=== PATIENT | female | born 1960 | race Hispanic/Latino ===

== ENCOUNTER 2019-12-16 14:28 | Outpatient (CLI) | payer BC ==
--- NOTE | 2019-12-16 15:07 | RAD ---
XR Lumbar Spine 2 Or 3 View: 12/16/2019 12:00 AM Low back pain with right-sided radiculopathy COMPARISON: None FINDINGS: Fracture: None. Alignment: There is grade 1 anterolisthesis of L5 on S1 with suspicion for bilateral pars defects at L5. There is moderate loss of the normal disc space height at L5-S1. There is mild multilevel disc degenerative disease at the remaining lumbar intervertebral disc spaces. Degenerative Change: Moderate facet osteoarthritic changes seen at L4-5. Mild multilevel facet osteo arthritic changes seen at the remaining intervertebral levels. Bone Mineralization:There is diffuse osteopenia Soft tissues: No acute abnormality. IMPRESSION: Mild to moderate lumbar spondylosis. Suspected bilateral pars defects at L5 with grade 1 anterolisthesis of L5 on S1. Further evaluation with an MRI of the lumbar spine may be helpful to evaluate the patient's complaint of right-sided lower extremity radiculopathy.
--- NOTE | 2019-12-16 15:10 | RAD ---
XR Shoulder Rt 3 View STANDARD HISTORY: Right shoulder pain FINDINGS: No fracture or dislocation is identified. There are degenerative changes in the acromioclavicular shaila nt.
--- NOTE | 2019-12-16 15:18 | RAD ---
CERVICAL SPINE 3 VIEWS: HISTORY: Cervicalgia. FINDINGS: C7, C7-T1, and T1 are mostly obscured on the lateral view. The tip of the odontoid and upper C1 are partially obscured on the AP open mouth view. Disk-osteophytosis changes are noted as well as some f acet arthrosis. No prevertebral soft tissue swelling. No malalignment. No acute fracture involving the visualized C-spine. IMPRESSION: Cervical spondylosis. POS: RRE
== END 2019-12-16 14:29 | disposition home or self-care (01) ==
LOC: BICRAD 14:28
PROVIDERS: ATTEND Family Medicine
DX: M54.5 Low back pain (principal); M25.511 Pain in right shoulder; M54.2 Cervicalgia; M47.812 Spondylosis without myelopathy or radiculopathy, cervical region; M47.816 Spondylosis without myelopathy or radiculopathy, lumbar region
CPT/HCPCS: 72040; 72100

== ENCOUNTER 2022-08-19 18:53 | Inpatient (IN) | payer BC, SELFPAY ==
[~2022-08-19 18:53] MED LIST: Iopamidol-370 76% 500 ML 1 ML ONE
[2022-08-19] MEDS ORDERED: Pantoprazole 40 MG VIAL ONE (19:27)
[2022-08-19] MEDS ORDERED: Ondansetron PF 4 MG/2 ML Vial ONE ×2 (19:27→22:47)
[2022-08-19 19:39] LABS: #Eosinphils 0.1 thou/uL (0.0-0.7); #Lymphocytes 0.5 thou/uL (1.20-3.40); #Monocytes 0.3 thou/uL (0.11-0.59); #Neutrophils 9.1 thou/uL (1.40-6.50); %Basophils 0.2 % (0.0-1.0); %Eosinophils 1.3 % (0.0-10.0); %Monocytes 3.1 % (0.0-10.0); %Neutrophils 90.4 % (42.0-75.0); Hemoglobin 10.5 g/dL (12.0-16.0); Mean Corpuscular HGB CONC 34.6 g/dL (32.0-36.0); Mean Corpuscular Hemoglobin 31.8 pg (27.0-31.0); Mean Corpuscular Volume 91.9 fl (78.0-98.0); Mean Platelet Volume 6.5 fL (7.4-10.4); Platelet Count 662 10x3/uL (130-400); RBC Distribution Width 12.4 % (11.5-14.5)
[2022-08-19 20:51] LABS: ALT (SGPT) 7 U/L (8-55); AST (SGOT) 17 U/L (5-34); Albumin 2.8 g/dL (3.5-5.0); Alkaline Phosphatase 210 U/L (40-110); Anion Gap 17 mmol/L (10-20); BUN (Urea Nitrogen) 27 mg/dL (9.8-20.1); Bilirubin, Total 0.4 mg/dL (0.2-1.2); Calc. Creatinine Clearance 0 mL/min (70-130); Carbon Dioxide 20 mmol/L (22-29); Chloride 103 mmol/L (98-107); Estimated GFR 68; Globulin 4.3 g/dL (2.4-3.5); Glucose 296 mg/dL (70-105); Lipase 7 U/L (8-78); Protein, Total 7.1 g/dL (6.0-8.3); Sodium 136 mmol/L (136-145)
[2022-08-19] MEDS ORDERED: Labetalol HCl 100 MG/20 ML VIAL ONE (20:53)
[2022-08-19 20:56] LABS: Calcium 8.6 mg/dL (7.6-10.4)
[2022-08-19 20:58] LABS: SARS-CoV-2 NAA Rapid Test Not Detected (NotDetected)
[2022-08-19] MEDS ORDERED: Morphine 4 MG/ML VIAL ONE (21:22)
[2022-08-19] MEDS ORDERED: Famotidine/PF 20 mg/2ml Vial ONE (22:47)
[2022-08-19] MEDS ORDERED: Acetaminophen 325 MG TAB PO PRN (23:30)
[2022-08-19] MEDS ORDERED: Ondansetron ODT 4 MG TAB SL PRN (23:30)
[2022-08-19] MEDS ORDERED: Sodium Chloride 0.9% 1,000 ML IV SCH (23:45)
[2022-08-20 00:18] LABS: Troponin I 0.122 ng/mL (< 0.028)
[2022-08-20] MEDS ORDERED: Acetaminophen 650 MG Suppository PR PRN (01:06)
[2022-08-20] MEDS ORDERED: hydrALAZINE 20 MG/ML VIAL ONE (01:54)
[2022-08-20] MEDS: hydrALAZINE 20 MG/ML VIAL SLOW IVP PRN ×2 (02:04→06:16)
[2022-08-20] MEDS ORDERED: Piperacillin/Tazobactam 3.375 GM in Sodium Chloride 0.9% 100 ML IVPB SCH (02:45)
[2022-08-20] MEDS ORDERED: Piperacillin/Tazobactam 3.375 GM VIAL ONE (02:50)
[2022-08-20 04:40] LABS: #Lymphocytes 0.6 thou/uL (1.20-3.40); #Monocytes 0.2 thou/uL (0.11-0.59); #Neutrophils 8.5 thou/uL (1.40-6.50); %Lymphocytes 6.7 % (21.0-51.0); %Monocytes 1.8 % (0.0-10.0); %Neutrophils 91.5 % (42.0-75.0); Hemoglobin 9.8 g/dL (12.0-16.0); Mean Corpuscular HGB CONC 32.3 g/dL (32.0-36.0); Mean Corpuscular Hemoglobin 30.3 pg (27.0-31.0); Mean Corpuscular Volume 93.9 fl (78.0-98.0); Mean Platelet Volume 6.5 fL (7.4-10.4); Platelet Count 634 10x3/uL (130-400); RBC Distribution Width 12.3 % (11.5-14.5); Red Blood Cell (RBC) Count 3.24 mill/uL (4.20-5.40); White Blood Cell (WBC) Count 9.3 10x3/uL (4.8-10.8)
[2022-08-20] MEDS ORDERED: Pantoprazole 40 MG VIAL IVP SCH (05:00)
[2022-08-20 05:02] LABS: Anion Gap 19 mmol/L (10-20); BUN (Urea Nitrogen) 26 mg/dL (9.8-20.1); Calc. Creatinine Clearance 77 mL/min (70-130); Calcium 8.5 mg/dL (7.8-10.44); Carbon Dioxide 17 mmol/L (22-29); Chloride 104 mmol/L (98-107); Estimated GFR 60; Glucose 397 mg/dL (70-105); Potassium 3.9 mmol/L (3.5-5.1); Sodium 136 mmol/L (136-145)
[2022-08-20] MEDS ORDERED: Dextrose 5% in Water 1,000 ML IV PRN (05:50)
[2022-08-20] MEDS ORDERED: HumaLOG 300 UNITS/3 ML VIAL SC PRN (05:50)
[2022-08-20] MEDS ORDERED: Dextrose 50% Abboject 50 ML SYRINGE SLOW IVP PRN (05:50)
[2022-08-20 06:16] VITALS: BMI 33.1
[2022-08-20] MEDS: Ondansetron PF 4 MG/2 ML Vial IVP PRN ×3 (06:16→19:26)
[2022-08-20] MEDS: HumaLOG 300 UNITS/3 ML VIAL SC PRN ×3 (06:17→17:45)
[2022-08-20] MEDS: Piperacillin/Tazobactam 3.375 GM in Sodium Chloride 0.9% 100 ML IVPB SCH ×3 (06:17→21:07)
[2022-08-20] MEDS ORDERED: Acetaminophen 325 MG TAB PO PRN (12:41)
[2022-08-21] MEDS: hydrALAZINE 20 MG/ML VIAL SLOW IVP PRN ×2 (04:38→08:43)
[2022-08-21] MEDS: Ondansetron PF 4 MG/2 ML Vial IVP PRN ×2 (04:38→21:10)
[2022-08-21] MEDS: Piperacillin/Tazobactam 3.375 GM in Sodium Chloride 0.9% 100 ML IVPB SCH ×3 (05:51→22:33)
[2022-08-21] MEDS: HumaLOG 300 UNITS/3 ML VIAL SC PRN ×2 (05:51→12:56)
[2022-08-21 06:29] LABS: #Lymphocytes 1.8 thou/uL (1.20-3.40); #Monocytes 0.6 thou/uL (0.11-0.59); #Neutrophils 9.7 thou/uL (1.40-6.50); %Basophils 0.1 % (0.0-1.0); %Eosinophils 0.2 % (0.0-10.0); %Lymphocytes 14.9 % (21.0-51.0); %Neutrophils 79.8 % (42.0-75.0); Hemoglobin 9.7 g/dL (12.0-16.0); Mean Corpuscular HGB CONC 32.7 g/dL (32.0-36.0); Mean Corpuscular Hemoglobin 30.7 pg (27.0-31.0); Mean Corpuscular Volume 94.1 fl (78.0-98.0); Mean Platelet Volume 6.5 fL (7.4-10.4); Platelet Count 654 10x3/uL (130-400); RBC Distribution Width 12.7 % (11.5-14.5); Red Blood Cell (RBC) Count 3.14 mill/uL (4.20-5.40); White Blood Cell (WBC) Count 12.1 10x3/uL (4.8-10.8)
[2022-08-21 06:54] LABS: Anion Gap 14 mmol/L (10-20); BUN (Urea Nitrogen) 32 mg/dL (9.8-20.1); Calc. Creatinine Clearance 47 mL/min (70-130); Calcium 8.5 mg/dL (7.8-10.44); Carbon Dioxide 20 mmol/L (22-29); Chloride 107 mmol/L (98-107); Estimated GFR 35; Glucose 271 mg/dL (70-105); Potassium 3.4 mmol/L (3.5-5.1); Sodium 138 mmol/L (136-145)
[2022-08-21] MEDS: Pantoprazole 40 MG VIAL IVP SCH (08:43)
[2022-08-21] MEDS ORDERED: Promethazine HCl 25 MG in Sodium Chloride 0.9% 50 ML IVPB SCH (11:00)
[2022-08-21] MEDS ORDERED: Potassium Chloride 20 MEQ in Premix Bag 1 BAG IVPB SCH (18:30)
[2022-08-21] MEDS ORDERED: Melatonin 3 MG TAB PO PRN (19:39)
[2022-08-21] MEDS ORDERED: cloNIDine 0.1 MG TAB PO SCH (21:45)
[2022-08-21] MEDS ORDERED: Labetalol HCl 100 MG/20 ML VIAL SLOW IVP PRN (21:57)
[2022-08-21] MEDS ORDERED: Ondansetron PF 4 MG/2 ML Vial IVP SCH (22:00)
[2022-08-22 05:20] LABS: #Basophils 0.1 thou/uL (0.0-0.2); #Eosinphils 0.1 thou/uL (0.0-0.7); #Lymphocytes 1.9 thou/uL (1.20-3.40); #Monocytes 0.7 thou/uL (0.11-0.59); #Neutrophils 6.6 thou/uL (1.40-6.50); %Basophils 0.6 % (0.0-1.0); %Eosinophils 1.4 % (0.0-10.0); %Lymphocytes 20.4 % (21.0-51.0); %Monocytes 7.2 % (0.0-10.0); %Neutrophils 70.4 % (42.0-75.0); Hemoglobin 9.4 g/dL (12.0-16.0); Mean Corpuscular HGB CONC 33.3 g/dL (32.0-36.0); Mean Corpuscular Volume 93.1 fl (78.0-98.0); Mean Platelet Volume 6.5 fL (7.4-10.4); Platelet Count 554 10x3/uL (130-400); RBC Distribution Width 12.7 % (11.5-14.5); Red Blood Cell (RBC) Count 3.02 mill/uL (4.20-5.40); White Blood Cell (WBC) Count 9.4 10x3/uL (4.8-10.8)
[2022-08-22 05:41] LABS: Anion Gap 17 mmol/L (10-20); BUN (Urea Nitrogen) 30 mg/dL (9.8-20.1); Calc. Creatinine Clearance 48 mL/min (70-130); Calcium 8.2 mg/dL (7.8-10.44); Carbon Dioxide 17 mmol/L (22-29); Chloride 108 mmol/L (98-107); Estimated GFR 35; Glucose 179 mg/dL (70-105); Potassium 3.6 mmol/L (3.5-5.1); Sodium 138 mmol/L (136-145)
[2022-08-22] MEDS: Piperacillin/Tazobactam 3.375 GM in Sodium Chloride 0.9% 100 ML IVPB SCH ×3 (06:02→21:11)
[2022-08-22] MEDS: Pantoprazole 40 MG VIAL IVP SCH (08:30)
[2022-08-22] MEDS: Ondansetron PF 4 MG/2 ML Vial IVP PRN (08:30)
[2022-08-22] MEDS: HumaLOG 300 UNITS/3 ML VIAL SC PRN ×2 (13:43→17:00)
[2022-08-22] MEDS: Promethazine HCl 25 MG in Sodium Chloride 0.9% 50 ML IVPB PRN (15:00)
[2022-08-22] MEDS: hydrALAZINE 20 MG/ML VIAL SLOW IVP PRN (15:13)
[2022-08-22] MEDS: Sodium Chloride 0.9% 1,000 ML IV SCH (17:02)
[2022-08-23 06:25] LABS: #Basophils 0.1 thou/uL (0.0-0.2); #Eosinphils 0.3 thou/uL (0.0-0.7); #Lymphocytes 2.8 thou/uL (1.20-3.40); #Monocytes 0.6 thou/uL (0.11-0.59); #Neutrophils 4.6 thou/uL (1.40-6.50); %Basophils 0.6 % (0.0-1.0); %Lymphocytes 33.6 % (21.0-51.0); %Monocytes 6.8 % (0.0-10.0); %Neutrophils 54.9 % (42.0-75.0); Hemoglobin 9.1 g/dL (12.0-16.0); Mean Corpuscular HGB CONC 33.5 g/dL (32.0-36.0); Mean Corpuscular Hemoglobin 31.3 pg (27.0-31.0); Mean Corpuscular Volume 93.6 fl (78.0-98.0); Mean Platelet Volume 6.6 fL (7.4-10.4); Platelet Count 498 10x3/uL (130-400); RBC Distribution Width 12.5 % (11.5-14.5); Red Blood Cell (RBC) Count 2.89 mill/uL (4.20-5.40); White Blood Cell (WBC) Count 8.3 10x3/uL (4.8-10.8)
[2022-08-23] MEDS: Piperacillin/Tazobactam 3.375 GM in Sodium Chloride 0.9% 100 ML IVPB SCH (06:34)
[2022-08-23] MEDS: Sodium Chloride 0.9% 1,000 ML IV SCH (06:34)
[2022-08-23 06:42] LABS: Anion Gap 11 mmol/L (10-20); BUN (Urea Nitrogen) 25 mg/dL (9.8-20.1); Calc. Creatinine Clearance 54 mL/min (70-130); Calcium 8.2 mg/dL (7.8-10.44); Carbon Dioxide 21 mmol/L (22-29); Chloride 109 mmol/L (98-107); Estimated GFR 40; Glucose 114 mg/dL (70-105); Potassium 3.1 mmol/L (3.5-5.1); Sodium 138 mmol/L (136-145)
[2022-08-23] MEDS: Pantoprazole 40 MG VIAL IVP SCH (09:39)
[2022-08-23] MEDS: Potassium Chloride 20 MEQ in Premix Bag 1 BAG IVPB SCH ×2 (09:42→12:19)
[2022-08-23] MEDS ORDERED: HYDROcodone/Acetaminophen 10/325 mg Tablet PO PRN (11:21)
[2022-08-23] MEDS ORDERED: Potassium Chloride 20 MEQ TAB PO SCH (12:00)
[2022-08-23] MEDS: HumaLOG 300 UNITS/3 ML VIAL SC PRN ×2 (12:42→17:20)
[2022-08-23] MEDS ORDERED: Metoprolol Tartrate 25 MG TAB PO SCH (12:45)
[2022-08-24] MEDS: HumaLOG 300 UNITS/3 ML VIAL SC PRN ×3 (05:42→17:36)
[2022-08-24 05:58] LABS: #Eosinphils 0.3 thou/uL (0.0-0.7); #Lymphocytes 2.1 thou/uL (1.20-3.40); #Monocytes 0.6 thou/uL (0.11-0.59); #Neutrophils 6.8 thou/uL (1.40-6.50); %Basophils 0.2 % (0.0-1.0); %Eosinophils 2.9 % (0.0-10.0); %Lymphocytes 21.1 % (21.0-51.0); %Monocytes 6.3 % (0.0-10.0); %Neutrophils 69.5 % (42.0-75.0); Hemoglobin 9.7 g/dL (12.0-16.0); Mean Corpuscular HGB CONC 33.2 g/dL (32.0-36.0); Mean Corpuscular Hemoglobin 30.9 pg (27.0-31.0); Mean Platelet Volume 6.7 fL (7.4-10.4); Platelet Count 460 10x3/uL (130-400); RBC Distribution Width 12.6 % (11.5-14.5); Red Blood Cell (RBC) Count 3.14 mill/uL (4.20-5.40); White Blood Cell (WBC) Count 9.8 10x3/uL (4.8-10.8)
[2022-08-24 06:19] LABS: Anion Gap 7 mmol/L (10-20); BUN (Urea Nitrogen) 19 mg/dL (9.8-20.1); Calc. Creatinine Clearance 64 mL/min (70-130); Calcium 7.7 mg/dL (7.8-10.44); Carbon Dioxide 24 mmol/L (22-29); Chloride 106 mmol/L (98-107); Estimated GFR 50; Glucose 232 mg/dL (70-105); Potassium 3.2 mmol/L (3.5-5.1); Sodium 134 mmol/L (136-145)
[2022-08-24] MEDS ORDERED: Electrolyte Replacement Protocol 1 EACH FS SCH (08:10)
[2022-08-24] MEDS ORDERED: Potassium Chloride 20 MEQ TAB PO SCH (08:30)
[2022-08-24 08:49] LABS: Magnesium 2.1 mg/dL (1.6-2.6); Phosphorus 2.3 mg/dL (2.3-4.7)
[2022-08-24] MEDS: Metoprolol Tartrate 25 MG TAB PO SCH (08:54)
[2022-08-24] MEDS: Promethazine HCl 25 MG in Sodium Chloride 0.9% 50 ML IVPB PRN (10:39)
[2022-08-24] MEDS ORDERED: metroNIDAZOLE 500 MG in Premix Bag 1 BAG IVPB SCH (14:30)
[2022-08-24] MEDS: metroNIDAZOLE 500 MG in Premix Bag 1 BAG IVPB SCH (22:19)
[2022-08-25 05:53] LABS: #Eosinphils 0.4 thou/uL (0.0-0.7); #Lymphocytes 2.8 thou/uL (1.20-3.40); #Monocytes 0.5 thou/uL (0.11-0.59); #Neutrophils 5.6 thou/uL (1.40-6.50); %Basophils 0.2 % (0.0-1.0); %Eosinophils 4.4 % (0.0-10.0); %Lymphocytes 29.6 % (21.0-51.0); %Monocytes 5.7 % (0.0-10.0); %Neutrophils 60.1 % (42.0-75.0); Hemoglobin 10.1 g/dL (12.0-16.0); Mean Corpuscular HGB CONC 33.3 g/dL (32.0-36.0); Mean Corpuscular Volume 93.2 fl (78.0-98.0); Platelet Count 427 10x3/uL (130-400); RBC Distribution Width 12.7 % (11.5-14.5); Red Blood Cell (RBC) Count 3.26 mill/uL (4.20-5.40); White Blood Cell (WBC) Count 9.3 10x3/uL (4.8-10.8)
[2022-08-25] MEDS: HumaLOG 300 UNITS/3 ML VIAL SC PRN ×2 (06:15→13:13)
[2022-08-25 06:17] LABS: Anion Gap 12 mmol/L (10-20); BUN (Urea Nitrogen) 17 mg/dL (9.8-20.1); Calc. Creatinine Clearance 72 mL/min (70-130); Calcium 7.8 mg/dL (7.8-10.44); Carbon Dioxide 20 mmol/L (22-29); Chloride 106 mmol/L (98-107); Estimated GFR 58; Glucose 196 mg/dL (70-105); Potassium 3.4 mmol/L (3.5-5.1); Sodium 135 mmol/L (136-145)
[2022-08-25] MEDS: metroNIDAZOLE 500 MG in Premix Bag 1 BAG IVPB SCH ×2 (06:30→13:14)
[2022-08-25] MEDS ORDERED: Potassium Chloride 20 MEQ TAB PO SCH (08:00)
[2022-08-25] MEDS ORDERED: Magnesium 2 GM/50 ML(in water) 2 GM in Premix Bag 1 BAG IVPB SCH (08:00)
[2022-08-25] MEDS: Metoprolol Tartrate 25 MG TAB PO SCH (08:41)
[2022-08-25 12:40] VITALS: TEMP 97.7
[2022-08-25 14:05] LABS: Potassium Greater than 9.5 mmol/L (3.5-5.1)
[2022-08-25 14:26] VITALS: BP 153/86
[2022-08-25 14:55] LABS: Potassium 3.5 mmol/L (3.5-5.1)
== END 2022-08-25 17:14 | disposition home or self-care (01) | DRG 392 ==
LOC: ERS 18:53 → ERHOLD 23:13 → NEURO 08-20 05:52 → OBSVTOIN 08-21 18:16
PROVIDERS: ADMIT Student in an Organized Health Care Education/Training Program; ATTEND Internal Medicine
DX: A09 Infectious gastroenteritis and colitis, unspecified (principal); J90 Pleural effusion, not elsewhere classified; N17.9 Acute kidney failure, unspecified; I10 Essential (primary) hypertension; I25.10 Atherosclerotic heart disease of native coronary artery without angina pectoris; Z20.822 Contact with and (suspected) exposure to COVID-19; K21.9 Gastro-esophageal reflux disease without esophagitis; E86.0 Dehydration; E11.65 Type 2 diabetes mellitus with hyperglycemia; E11.43 Type 2 diabetes mellitus with diabetic autonomic (poly)neuropathy; K31.84 Gastroparesis; Z95.1 Presence of aortocoronary bypass graft
CPT/HCPCS: 36415; 36416; 71045; 71275; 74176; 80048; 80053; 82553; 83605; 83690; 83735; 83880; 84100; 84484; 85025; 87040; 87324; 87449; 93005; 93306; 96361; 96365; 96366; 96367; 96372; 96375; 96376; C9113; G0378; J0360; J1650; J1815; J2270; J2405; J2543; J2550; J3475; J3480; J3490; J7050; Q9967; S0028

== ENCOUNTER 2022-12-10 08:57 | Inpatient (IN) | payer OTHER, SELFPAY ==
[2022-12-10 09:28] LABS: Base Excess -12.4 mEq/L (-2.0 to +3.0); Calcium, Ionized (venous) 1.14 mmol/L (1.16-1.32); Chloride (VBG) 99 mmol/L (98-106); Hematocrit-VBG 44 % (36.0-47.0); Hemoglobin (Hb) 14.8 g/dL (11.7-16.0); Potassium (VBG) 4.17 mmol/L (3.70-5.30); Sodium 136.5 mmol/L (133-146); pH (venous) 7.327 (7.32-7.43)
[2022-12-10 09:33] LABS: #Monocytes 0.3 thou/uL (0.11-0.59); #Neutrophils 10.6 thou/uL (1.40-6.50); %Basophils 0.2 % (0.0-1.0); %Lymphocytes 10.1 % (21.0-51.0); %Monocytes 2.2 % (0.0-10.0); Hemoglobin 13.7 g/dL (12.0-16.0); Mean Corpuscular HGB CONC 33.7 g/dL (32.0-36.0); Mean Corpuscular Hemoglobin 28.8 pg (27.0-31.0); Mean Corpuscular Volume 85.3 fl (78.0-98.0); Mean Platelet Volume 10.2 fL (7.4-10.4); Platelet Count 403 10x3/uL (130-400); RBC Distribution Width 13.2 % (11.5-14.5); Red Blood Cell (RBC) Count 4.76 mill/uL (4.20-5.40); White Blood Cell (WBC) Count 12.2 10x3/uL (4.8-10.8)
[2022-12-10] MEDS ORDERED: Metoclopramide HCl 10 MG/2 ML VIAL ONE (09:42)
[2022-12-10] MEDS ORDERED: diphenhydrAMINE 50 MG/ML VIAL ONE (09:42)
[2022-12-10] MEDS ORDERED: Famotidine/PF 20 mg/2ml Vial ONE (09:42)
[2022-12-10 10:07] LABS: ALT (SGPT) 8 U/L (8-55); AST (SGOT) 14 U/L (5-34); Albumin 2.5 g/dL (3.5-5.0); Alkaline Phosphatase 135 U/L (40-110); Anion Gap 30 mmol/L (10-20); BUN (Urea Nitrogen) 28 mg/dL (9.8-20.1); Bilirubin, Total 0.2 mg/dL (0.2-1.2); Calc. Creatinine Clearance 0 mL/min (70-130); Calcium 9.2 mg/dL (7.8-10.44); Carbon Dioxide 10 mmol/L (22-29); Chloride 98 mmol/L (98-107); Estimated GFR 25; Globulin 4.4 g/dL (2.4-3.5); Glucose 634 mg/dL (70-105); Lipase 29 U/L (8-78); Magnesium 2.4 mg/dL (1.6-2.6); Potassium 4.1 mmol/L (3.5-5.1); Protein, Total 6.9 g/dL (6.0-8.3); Sodium 134 mmol/L (136-145)
[2022-12-10] MEDS ORDERED: INSULIN REGULAR IN 0.9 % NACL 100 UNITS/100 ML BAG ONE (10:32)
[2022-12-10] MEDS ORDERED: HUMULIN R 100 UNITS in Sodium Chloride 0.9% 100 ML IVPB SCH ×3 (10:45→12:15)
[2022-12-10] MEDS ORDERED: Dextrose 50% Abboject 50 ML SYRINGE SLOW IVP PRN ×2 (11:25→12:13)
[2022-12-10] MEDS ORDERED: NS 0.9% w/ 20 MEQ KCL 1,000 ML IV PRN ×3 (11:25→12:13)
[2022-12-10] MEDS ORDERED: Sodium Chloride 0.9% 1,000 ML IV PRN ×8 (11:25→12:13)
[2022-12-10] MEDS ORDERED: Dextrose 5 %-0.45 % NaCl 1,000 ML IV PRN ×2 (11:25→12:13)
[2022-12-10] MEDS ORDERED: D5 1/2 NS w/20 mEq KCL 1,000 ML IV PRN (11:25)
[2022-12-10] MEDS ORDERED: Electrolyte Replacement Protocol 1 EACH IVPB ONE (11:25)
[2022-12-10] MEDS ORDERED: Potassium Chloride 20 MEQ/100 ML PREMIX BAG ONE (11:41)
[2022-12-10 12:04] LABS: Bilirubin Negative (Negative); Blood, Urine 1+ (Negative); CAUTI Indications for Culture Alt mental st,lethar; Clarity Turbid (Clear); Glucose, Urine (Dipstick) Greater than 1000 mg/dL (Negative); Ketone, Urine 100 mg/dL (Negative); Leukocyte 250 Leu/uL (Negative); Nitrite Negative (Negative); Protein, Urine (Dipstick) 600 mg/dL (Neg-Trace); Specific Gravity, Urine 1.022 (1.002-1.036); Squamous Epithelial 0-3 HPF (0-3); Urobilinogen Normal mg/dL (Less than 2)
[2022-12-10 12:12] LABS: Bacteria/HPF 3+ HPF (None Seen); WBC/HPF 21-50 HPF (0-3)
[2022-12-10] MEDS ORDERED: Electrolyte Replacement Protocol 1 EACH IVPB SCH (12:13)
[2022-12-10] MEDS ORDERED: Senokot S 8.6-50 MG TAB PO PRN (12:13)
[2022-12-10] MEDS ORDERED: Calcium Carbonate 500 MG ChewTAB PO PRN (12:13)
[2022-12-10] MEDS ORDERED: Guaifenesin DM 100-10/5 ML UDCUP PO PRN (12:13)
[2022-12-10] MEDS ORDERED: Acetaminophen 325 MG TAB PO PRN (12:13)
[2022-12-10 12:14] LABS: Urine Culture Reflex Yes Yes
[2022-12-10] MEDS ORDERED: Melatonin 3 MG TAB PO PRN (12:15)
[2022-12-10 12:50] LABS: Lactic Acid 3.2 mmol/L (0.5-2.2)
[2022-12-10 13:01] LABS: Anion Gap 25 mmol/L (10-20); BUN (Urea Nitrogen) 28 mg/dL (9.8-20.1); Calc. Creatinine Clearance 0 mL/min (70-130); Calcium 8.8 mg/dL (7.8-10.44); Carbon Dioxide 11 mmol/L (22-29); Chloride 104 mmol/L (98-107); Estimated GFR 26; Glucose 604 mg/dL (70-105); Potassium 4.8 mmol/L (3.5-5.1); Sodium 135 mmol/L (136-145)
[2022-12-10 15:14] LABS: Glucose 428 mg/dL (70-105)
[2022-12-10] MEDS: NS 0.9% w/ 20 MEQ KCL 1,000 ML IV PRN ×2 (16:05→18:10)
[2022-12-10 17:16] LABS: Anion Gap 18 mmol/L (10-20); BUN (Urea Nitrogen) 28 mg/dL (9.8-20.1); Calc. Creatinine Clearance 34 mL/min (70-130); Calcium 8.7 mg/dL (7.8-10.44); Carbon Dioxide 13 mmol/L (22-29); Chloride 108 mmol/L (98-107); Estimated GFR 28; Glucose 354 mg/dL (70-105); Potassium 3.4 mmol/L (3.5-5.1); Sodium 136 mmol/L (136-145)
[2022-12-10] MEDS: D5 1/2 NS w/20 mEq KCL 1,000 ML IV PRN ×2 (19:43→23:59)
[2022-12-10] MEDS: Potassium Chloride 20 MEQ in Premix Bag 1 BAG IVPB SCH ×2 (20:07→21:59)
[2022-12-10] MEDS: Ondansetron PF 4 MG/2 ML Vial IVP PRN (20:07)
[2022-12-10] MEDS: cefTRIAXone\\ROCEPHIN 2 GM in Sodium Chloride 0.9% 100 ML IVPB SCH (20:07)
[2022-12-10 21:03] LABS: Anion Gap 12 mmol/L (10-20); BUN (Urea Nitrogen) 27 mg/dL (9.8-20.1); Calc. Creatinine Clearance 36 mL/min (70-130); Calcium 8.5 mg/dL (7.8-10.44); Carbon Dioxide 20 mmol/L (22-29); Chloride 114 mmol/L (98-107); Estimated GFR 30; Glucose 208 mg/dL (70-105); Potassium 3.8 mmol/L (3.5-5.1); Sodium 142 mmol/L (136-145)
[2022-12-11] MEDS: Ondansetron PF 4 MG/2 ML Vial IVP PRN ×2 (01:50→15:30)
[2022-12-11 04:49] LABS: Anion Gap 12 mmol/L (10-20); BUN (Urea Nitrogen) 23 mg/dL (9.8-20.1); Calc. Creatinine Clearance 45 mL/min (70-130); Calcium 8.4 mg/dL (7.8-10.44); Carbon Dioxide 18 mmol/L (22-29); Chloride 116 mmol/L (98-107); Estimated GFR 39; Glucose 178 mg/dL (70-105); Potassium 3.9 mmol/L (3.5-5.1); Sodium 142 mmol/L (136-145)
[2022-12-11] MEDS: Metoprolol Tartrate 25 MG TAB PO SCH (07:57)
[2022-12-11] MEDS: D5 1/2 NS w/20 mEq KCL 1,000 ML IV PRN (07:57)
[2022-12-11] MEDS ORDERED: Lidocaine 2% Viscous Solution 20 ML, Aluminum & Magnesium Hydroxide 30 ML, Donnatal Eli... SSW SCH (14:00)
[2022-12-11 14:03] LABS: Anion Gap 12 mmol/L (10-20); BUN (Urea Nitrogen) 18 mg/dL (9.8-20.1); Calc. Creatinine Clearance 48 mL/min (70-130); Calcium 8.7 mg/dL (7.8-10.44); Carbon Dioxide 18 mmol/L (22-29); Chloride 113 mmol/L (98-107); Estimated GFR 41; Glucose 197 mg/dL (70-105); Potassium 3.7 mmol/L (3.5-5.1); Sodium 139 mmol/L (136-145)
[2022-12-11] MEDS ORDERED: Dextrose 5% in Water 1,000 ML IV PRN (15:00)
[2022-12-11] MEDS ORDERED: Glucagon 1 MG/ML KIT IM PRN (15:00)
[2022-12-11] MEDS ORDERED: Insulin Glargine 30 UNITS/0.3 ML VIAL SC SCH (15:00)
[2022-12-11 17:43] LABS: Anion Gap 15 mmol/L (10-20); BUN (Urea Nitrogen) 16 mg/dL (9.8-20.1); Calc. Creatinine Clearance 51 mL/min (70-130); Calcium 8.6 mg/dL (7.8-10.44); Carbon Dioxide 16 mmol/L (22-29); Chloride 113 mmol/L (98-107); Estimated GFR 45; Glucose 153 mg/dL (70-105); Potassium 3.7 mmol/L (3.5-5.1); Sodium 140 mmol/L (136-145)
[2022-12-11] MEDS ORDERED: Metoclopramide HCl 10 MG/2 ML VIAL IVP SCH (20:00)
[2022-12-11] MEDS ORDERED: Promethazine HCl 25 MG in Sodium Chloride 0.9% 50 ML IVPB SCH (20:00)
[2022-12-11] MEDS: cefTRIAXone\\ROCEPHIN 2 GM in Sodium Chloride 0.9% 100 ML IVPB SCH (20:13)
[2022-12-11] MEDS: Atorvastatin Calcium 40 MG TAB PO SCH (20:13)
[2022-12-11] MEDS: HumaLOG 300 UNITS/3 ML VIAL SC PRN (21:00)
[2022-12-11] MEDS ORDERED: Famotidine 20 MG TAB PO SCH (21:00)
[2022-12-11] MEDS ORDERED: Carvedilol 6.25 MG TAB PO SCH (21:00)
[2022-12-12] MEDS: Sodium Chloride 0.9% 1,000 ML IV SCH ×4 (00:10→18:13)
[2022-12-12 04:15] LABS: #Monocytes 0.7 thou/uL (0.11-0.59); #Neutrophils 9.5 thou/uL (1.40-6.50); %Basophils 0.3 % (0.0-1.0); %Lymphocytes 15.5 % (21.0-51.0); %Monocytes 5.9 % (0.0-10.0); %Neutrophils 77.9 % (42.0-75.0); Hemoglobin 13.6 g/dL (12.0-16.0); Mean Corpuscular HGB CONC 33.6 g/dL (32.0-36.0); Mean Corpuscular Hemoglobin 28.3 pg (27.0-31.0); Mean Corpuscular Volume 84.4 fl (78.0-98.0); Mean Platelet Volume 10.9 fL (7.4-10.4); Platelet Count 227 10x3/uL (130-400); White Blood Cell (WBC) Count 12.2 10x3/uL (4.8-10.8)
[2022-12-12] MEDS: HumaLOG 300 UNITS/3 ML VIAL SC PRN (04:53)
[2022-12-12] MEDS: Ondansetron PF 4 MG/2 ML Vial IVP PRN ×3 (05:48→19:26)
[2022-12-12 07:35] LABS: Chloride 117 mmol/L (98-107); Potassium 3.6 mmol/L (3.5-5.1); Sodium 142 mmol/L (136-145)
[2022-12-12 07:36] LABS: Calcium 8.3 mg/dL (7.8-10.44); Glucose 198 mg/dL (70-105)
[2022-12-12 07:38] LABS: Anion Gap 12 mmol/L (10-20); Carbon Dioxide 17 mmol/L (22-29)
[2022-12-12 07:40] LABS: BUN (Urea Nitrogen) 17 mg/dL (9.8-20.1); Calc. Creatinine Clearance 49 mL/min (70-130); Estimated GFR 43
[2022-12-12] MEDS: Metoprolol Tartrate 25 MG TAB PO SCH (09:16)
[2022-12-12] MEDS: Amlodipine 5 MG TAB PO SCH (09:16)
[2022-12-12] MEDS: Aspirin 81 mg Enteric Coated Tablet PO SCH (09:16)
[2022-12-12] MEDS: Insulin Glargine 30 UNITS/0.3 ML VIAL SC SCH (09:17)
[2022-12-12] MEDS ORDERED: Metoclopramide HCl 10 MG/2 ML VIAL IVP SCH (09:45)
[2022-12-12 10:25] LABS: Actual Bicarbonate (HCO3v) 11.2 mEq/L (22-28)
[2022-12-12] MEDS: Metoclopramide 10 MG/10 ML UDCUP PO SCH ×3 (11:39→21:19)
[2022-12-12] MEDS: Senokot 8.6 MG TAB PO PRN (11:44)
[2022-12-12] MEDS: Atorvastatin Calcium 40 MG TAB PO SCH (21:19)
[2022-12-13 04:18] LABS: Anion Gap 10 mmol/L (10-20); BUN (Urea Nitrogen) 14 mg/dL (9.8-20.1); Calc. Creatinine Clearance 57 mL/min (70-130); Calcium 8.3 mg/dL (7.8-10.44); Carbon Dioxide 18 mmol/L (22-29); Chloride 118 mmol/L (98-107); Estimated GFR 51; Glucose 91 mg/dL (70-105); Potassium 3.2 mmol/L (3.5-5.1); Sodium 143 mmol/L (136-145)
[2022-12-13] MEDS: Potassium Chloride 20 MEQ in Premix Bag 1 BAG IVPB SCH ×2 (04:57→06:38)
[2022-12-13] MEDS: Ondansetron PF 4 MG/2 ML Vial IVP PRN ×2 (05:16→13:33)
[2022-12-13] MEDS: Metoclopramide 10 MG/10 ML UDCUP PO SCH ×4 (07:58→20:20)
[2022-12-13] MEDS: Metoprolol Tartrate 25 MG TAB PO SCH (08:01)
[2022-12-13] MEDS: Aspirin 81 mg Enteric Coated Tablet PO SCH (08:01)
[2022-12-13] MEDS: Amlodipine 5 MG TAB PO SCH (08:01)
[2022-12-13] MEDS: Insulin Glargine 30 UNITS/0.3 ML VIAL SC SCH (08:10)
[2022-12-13] MEDS: Senokot 8.6 MG TAB PO PRN (10:00)
[2022-12-13] MEDS: hydrALAZINE 20 MG/ML VIAL SLOW IVP PRN ×2 (10:00→18:12)
[2022-12-13] MEDS: Atorvastatin Calcium 40 MG TAB PO SCH (20:21)
[2022-12-13] MEDS ORDERED: Morphine 2 MG/ML VIAL SLOW IVP SCH (20:45)
[2022-12-14 05:45] LABS: #Eosinphils 0.1 thou/uL (0.0-0.7); #Monocytes 0.5 thou/uL (0.11-0.59); #Neutrophils 3.9 thou/uL (1.40-6.50); %Basophils 0.3 % (0.0-1.0); %Eosinophils 1.3 % (0.0-10.0); %Lymphocytes 41.8 % (21.0-51.0); %Monocytes 6.4 % (0.0-10.0); %Neutrophils 49.9 % (42.0-75.0); Mean Corpuscular HGB CONC 32.7 g/dL (32.0-36.0); Mean Corpuscular Hemoglobin 28.6 pg (27.0-31.0); Mean Corpuscular Volume 87.4 fl (78.0-98.0); Mean Platelet Volume 9.4 fL (7.4-10.4); Platelet Count 281 10x3/uL (130-400); RBC Distribution Width 14.4 % (11.5-14.5); White Blood Cell (WBC) Count 7.8 10x3/uL (4.8-10.8)
[2022-12-14 06:09] LABS: Anion Gap 6 mmol/L (10-20); BUN (Urea Nitrogen) 13 mg/dL (9.8-20.1); Calc. Creatinine Clearance 59 mL/min (70-130); Calcium 7.8 mg/dL (7.8-10.44); Carbon Dioxide 19 mmol/L (22-29); Chloride 115 mmol/L (98-107); Estimated GFR 52; Glucose 69 mg/dL (70-105); Magnesium 1.5 mg/dL (1.6-2.6); Potassium 3.2 mmol/L (3.5-5.1); Sodium 137 mmol/L (136-145)
[2022-12-14] MEDS: Sodium Chloride 0.9% 1,000 ML IV SCH (07:29)
[2022-12-14] MEDS ORDERED: Magnesium 2 GM/50 ML(in water) 2 GM in Premix Bag 1 BAG IVPB SCH (08:00)
[2022-12-14] MEDS ORDERED: Potassium Chloride 20 MEQ TAB PO SCH ×3 (08:00→15:45)
[2022-12-14] MEDS: Dextrose 50% Abboject 50 ML SYRINGE IVP PRN (08:10)
[2022-12-14] MEDS: Insulin Glargine 30 UNITS/0.3 ML VIAL SC SCH (08:16)
[2022-12-14] MEDS: Aspirin 81 mg Enteric Coated Tablet PO SCH (08:16)
[2022-12-14] MEDS: Metoclopramide 10 MG/10 ML UDCUP PO SCH ×4 (10:27→20:09)
[2022-12-14] MEDS ORDERED: Promethazine HCl 25 MG/ML VIAL IM PRN (10:31)
[2022-12-14] MEDS ORDERED: Ondansetron HCl/PF 4 MG/2 ML Vial IVP PRN (10:31)
[2022-12-14] MEDS ORDERED: PHENYLEPHRINE-NS 100 MCG/ML 10 ML SYRINGE ONE (10:41)
[2022-12-14] MEDS ORDERED: Lidocaine 1% PF 5 ML VIAL ONE (10:41)
[2022-12-14] MEDS ORDERED: ePHEDrine Sulfate 50 MG/10 ML VIAL ONE ×2 (10:41→11:12)
[2022-12-14] MEDS ORDERED: PROPOFOL 200 MG/20 ML VIAL ONE (10:41)
[2022-12-14] MEDS: Amlodipine 5 MG TAB PO SCH (12:27)
[2022-12-14] MEDS: HYDROcodone/Acetaminophen 5/325 mg Tablet PO PRN ×2 (12:27→16:11)
[2022-12-14] MEDS: Metoprolol Tartrate 25 MG TAB PO SCH (12:27)
[2022-12-14] MEDS: Sodium Chloride 0.45% 1,000 ML IV SCH (16:14)
[2022-12-14] MEDS: Atorvastatin Calcium 40 MG TAB PO SCH (20:09)
[2022-12-14] MEDS: Pantoprazole 40 MG VIAL IVP SCH (20:11)
[2022-12-14] MEDS: HumaLOG 300 UNITS/3 ML VIAL SC PRN (20:11)
[2022-12-15] MEDS: Sodium Chloride 0.45% 1,000 ML IV SCH ×3 (03:14→20:45)
[2022-12-15] MEDS: Dextrose 50% Abboject 50 ML SYRINGE IVP PRN (03:19)
[2022-12-15 06:00] LABS: Anion Gap 9 mmol/L (10-20); BUN (Urea Nitrogen) 13 mg/dL (9.8-20.1); Calc. Creatinine Clearance 62 mL/min (70-130); Calcium 7.7 mg/dL (7.8-10.44); Carbon Dioxide 18 mmol/L (22-29); Chloride 111 mmol/L (98-107); Estimated GFR 55; Glucose 111 mg/dL (70-105); Potassium 4.3 mmol/L (3.5-5.1); Sodium 134 mmol/L (136-145)
[2022-12-15] MEDS: Metoprolol Tartrate 25 MG TAB PO SCH (06:06)
[2022-12-15] MEDS: Metoclopramide 10 MG/10 ML UDCUP PO SCH ×4 (08:15→20:55)
[2022-12-15] MEDS: Aspirin 81 mg Enteric Coated Tablet PO SCH (08:19)
[2022-12-15] MEDS: Amlodipine 5 MG TAB PO SCH (08:19)
[2022-12-15] MEDS: Insulin Glargine 30 UNITS/0.3 ML VIAL SC SCH (08:20)
[2022-12-15] MEDS: Pantoprazole 40 MG VIAL IVP SCH ×2 (08:20→20:58)
[2022-12-15] MEDS ORDERED: Promethazine HCl 25 MG/ML VIAL IM PRN (09:13)
[2022-12-15] MEDS ORDERED: Ondansetron HCl/PF 4 MG/2 ML Vial IVP PRN (09:13)
[2022-12-15] MEDS ORDERED: fentaNYL PF 100 MCG/2 ML SYRINGE ONE (10:25)
[2022-12-15] MEDS ORDERED: Bupivacaine/Epinephrine 0.25% 30 ML VIAL ONE (10:36)
[2022-12-15] MEDS ORDERED: PROPOFOL 200 MG/20 ML VIAL ONE (10:48)
[2022-12-15] MEDS ORDERED: PHENYLEPHRINE-NS 100 MCG/ML 10 ML SYRINGE ONE (10:48)
[2022-12-15] MEDS ORDERED: Rocuronium Bromide 10 MG/ML (10ML VIAL) ONE (10:48)
[2022-12-15] MEDS ORDERED: Lidocaine 1% PF 5 ML VIAL ONE (10:48)
[2022-12-15] MEDS ORDERED: fentaNYL 50 mcg/mL 1 mL Vial ONE ×2 (12:10→12:35)
[2022-12-15] MEDS ORDERED: Ondansetron PF 4 MG/2 ML Vial ONE (12:14)
[2022-12-15] MEDS ORDERED: traMADol HCl 50 MG TAB PO PRN (12:23)
[2022-12-15] MEDS ORDERED: Acetaminophen 325 MG TAB PO SCH (12:45)
[2022-12-15] MEDS: Acetaminophen 325 MG TAB PO SCH ×2 (17:18→23:34)
[2022-12-15] MEDS: Atorvastatin Calcium 40 MG TAB PO SCH (20:45)
[2022-12-15] MEDS: HumaLOG 300 UNITS/3 ML VIAL SC PRN (20:51)
[2022-12-16] MEDS: Ondansetron PF 4 MG/2 ML Vial IVP PRN (04:55)
[2022-12-16] MEDS: Acetaminophen 325 MG TAB PO SCH ×4 (06:02→17:52)
[2022-12-16 06:56] LABS: ALT (SGPT) 16 U/L (8-55); AST (SGOT) 62 U/L (5-34); Albumin 1.9 g/dL (3.5-5.0); Alkaline Phosphatase 176 U/L (40-110); Anion Gap 7 mmol/L (10-20); BUN (Urea Nitrogen) 14 mg/dL (9.8-20.1); Bilirubin, Direct 0.1 mg/dL (0.1-0.3); Bilirubin, Total Less than 0.2 mg/dL (0.2-1.2); Calc. Creatinine Clearance 59 mL/min (70-130); Calcium 7.6 mg/dL (7.8-10.44); Carbon Dioxide 17 mmol/L (22-29); Chloride 109 mmol/L (98-107); Estimated GFR 51; Glucose 156 mg/dL (70-105); Potassium 4.2 mmol/L (3.5-5.1); Protein, Total 4.8 g/dL (6.0-8.3); Sodium 129 mmol/L (136-145)
[2022-12-16] MEDS: Sodium Chloride 0.45% 1,000 ML IV SCH ×2 (06:59→17:53)
[2022-12-16] MEDS ORDERED: Ondansetron PF 4 MG/2 ML Vial IVP SCH (07:00)
[2022-12-16] MEDS: Metoprolol Tartrate 25 MG TAB PO SCH (08:27)
[2022-12-16] MEDS: Aspirin 81 mg Enteric Coated Tablet PO SCH (08:27)
[2022-12-16] MEDS: Amlodipine 5 MG TAB PO SCH (08:28)
[2022-12-16] MEDS: Metoclopramide 10 MG/10 ML UDCUP PO SCH ×4 (08:29→22:39)
[2022-12-16] MEDS: Insulin Glargine 30 UNITS/0.3 ML VIAL SC SCH (08:30)
[2022-12-16] MEDS: Pantoprazole 40 MG VIAL IVP SCH ×2 (08:30→22:39)
[2022-12-16 08:38] VITALS: BMI 29.7
[2022-12-16] MEDS: Sodium Bicarbonate Tab 325 MG TAB PO SCH ×2 (13:14→22:39)
[2022-12-16] MEDS: HumaLOG 300 UNITS/3 ML VIAL SC PRN ×2 (13:19→17:53)
[2022-12-16] MEDS ORDERED: Loperamide HCl 2 MG CAP PO SCH (15:45)
[2022-12-16] MEDS: Cholestyramine/Aspartame 4 gm Packet PO SCH (22:38)
[2022-12-16] MEDS: Atorvastatin Calcium 40 MG TAB PO SCH (22:39)
[2022-12-17] MEDS: Acetaminophen 325 MG TAB PO SCH ×4 (00:09→19:11)
[2022-12-17] MEDS ORDERED: Dextrose 50% Abboject 50 ML SYRINGE ONE (03:53)
[2022-12-17] MEDS: Dextrose 50% Abboject 50 ML SYRINGE IVP PRN (03:54)
[2022-12-17 04:42] LABS: ALT (SGPT) 12 U/L (8-55); AST (SGOT) 45 U/L (5-34); Albumin 1.7 g/dL (3.5-5.0); Alkaline Phosphatase 173 U/L (40-110); Anion Gap 7 mmol/L (10-20); BUN (Urea Nitrogen) 14 mg/dL (9.8-20.1); Bilirubin, Total Less than 0.2 mg/dL (0.2-1.2); Calc. Creatinine Clearance 64 mL/min (70-130); Calcium 7.5 mg/dL (7.8-10.44); Carbon Dioxide 16 mmol/L (22-29); Chloride 110 mmol/L (98-107); Estimated GFR 56; Globulin 2.5 g/dL (2.4-3.5); Glucose 150 mg/dL (70-105); Magnesium 1.9 mg/dL (1.6-2.6); Potassium 4.1 mmol/L (3.5-5.1); Protein, Total 4.2 g/dL (6.0-8.3); Sodium 129 mmol/L (136-145)
[2022-12-17 05:21] LABS: #Eosinphils 0.1 thou/uL (0.0-0.7); #Monocytes 0.5 thou/uL (0.11-0.59); #Neutrophils 5.3 thou/uL (1.40-6.50); %Basophils 0.1 % (0.0-1.0); %Eosinophils 1.3 % (0.0-10.0); %Lymphocytes 19.4 % (21.0-51.0); %Neutrophils 71.8 % (42.0-75.0); Hemoglobin 11.3 g/dL (12.0-16.0); Mean Corpuscular HGB CONC 32.8 g/dL (32.0-36.0); Mean Corpuscular Hemoglobin 28.9 pg (27.0-31.0); Mean Platelet Volume 9.7 fL (7.4-10.4); Platelet Count 244 10x3/uL (130-400); RBC Distribution Width 13.4 % (11.5-14.5); Red Blood Cell (RBC) Count 3.91 mill/uL (4.20-5.40); White Blood Cell (WBC) Count 7.4 10x3/uL (4.8-10.8)
[2022-12-17] MEDS: Sodium Chloride 0.45% 1,000 ML IV SCH (07:11)
[2022-12-17] MEDS ORDERED: Sodium Bicarbonate 150 MEQ in Dextrose 5% in Water 1,000 ML IV SCH (08:45)
[2022-12-17] MEDS ORDERED: Insulin Glargine 30 UNITS/0.3 ML VIAL SC SCH (09:00)
[2022-12-17] MEDS: Metoprolol Tartrate 25 MG TAB PO SCH (09:20)
[2022-12-17] MEDS: Aspirin 81 mg Enteric Coated Tablet PO SCH (09:20)
[2022-12-17] MEDS: Sodium Bicarbonate Tab 325 MG TAB PO SCH ×3 (09:20→20:43)
[2022-12-17] MEDS: Pantoprazole 40 MG VIAL IVP SCH ×2 (09:22→20:43)
[2022-12-17] MEDS: Metoclopramide 10 MG/10 ML UDCUP PO SCH ×5 (09:36→20:40)
[2022-12-17] MEDS: Amlodipine 10 MG TAB PO SCH (09:37)
[2022-12-17] MEDS: Lactated Ringer's 1,000 ML IV SCH (11:40)
[2022-12-17] MEDS: Cholestyramine/Aspartame 4 gm Packet PO SCH ×2 (11:41→20:58)
[2022-12-17 16:08] LABS: Anion Gap 10 mmol/L (10-20); BUN (Urea Nitrogen) 14 mg/dL (9.8-20.1); Calc. Creatinine Clearance 59 mL/min (70-130); Calcium 7.4 mg/dL (7.8-10.44); Carbon Dioxide 18 mmol/L (22-29); Chloride 104 mmol/L (98-107); Estimated GFR 51; Glucose 248 mg/dL (70-105); Potassium 4.2 mmol/L (3.5-5.1); Sodium 128 mmol/L (136-145)
[2022-12-17] MEDS: HumaLOG 300 UNITS/3 ML VIAL SC PRN (16:23)
[2022-12-17] MEDS: Atorvastatin Calcium 40 MG TAB PO SCH (20:43)
[2022-12-17] MEDS: Ondansetron PF 4 MG/2 ML Vial IVP PRN (21:54)
[2022-12-18] MEDS: Acetaminophen 325 MG TAB PO SCH ×5 (00:57→23:58)
[2022-12-18 05:45] LABS: ALT (SGPT) 8 U/L (8-55); AST (SGOT) 20 U/L (5-34); Albumin 1.8 g/dL (3.5-5.0); Alkaline Phosphatase 164 U/L (40-110); Anion Gap 8 mmol/L (10-20); BUN (Urea Nitrogen) 15 mg/dL (9.8-20.1); Bilirubin, Total Less than 0.2 mg/dL (0.2-1.2); Calc. Creatinine Clearance 52 mL/min (70-130); Calcium 7.4 mg/dL (7.8-10.44); Carbon Dioxide 19 mmol/L (22-29); Chloride 105 mmol/L (98-107); Estimated GFR 44; Globulin 2.6 g/dL (2.4-3.5); Glucose 98 mg/dL (70-105); Magnesium 1.8 mg/dL (1.6-2.6); Potassium 3.8 mmol/L (3.5-5.1); Protein, Total 4.4 g/dL (6.0-8.3); Sodium 128 mmol/L (136-145)
[2022-12-18] MEDS: Lactated Ringer's 1,000 ML IV SCH (06:31)
[2022-12-18] MEDS: Metoclopramide 10 MG/10 ML UDCUP PO SCH ×4 (07:47→19:46)
[2022-12-18] MEDS ORDERED: Insulin Glargine 30 UNITS/0.3 ML VIAL SC SCH (09:00)
[2022-12-18] MEDS: Aspirin 81 mg Enteric Coated Tablet PO SCH (10:34)
[2022-12-18] MEDS: Sodium Bicarbonate Tab 325 MG TAB PO SCH ×3 (10:34→19:59)
[2022-12-18] MEDS: Pantoprazole 40 MG VIAL IVP SCH ×2 (10:35→19:59)
[2022-12-18] MEDS: Amlodipine 10 MG TAB PO SCH (10:46)
[2022-12-18] MEDS: Metoprolol Tartrate 25 MG TAB PO SCH (10:46)
[2022-12-18] MEDS: Cholestyramine/Aspartame 4 gm Packet PO SCH ×2 (10:47→21:33)
[2022-12-18] MEDS: HumaLOG 300 UNITS/3 ML VIAL SC PRN (17:25)
[2022-12-18 19:56] VITALS: TEMP 98
[2022-12-18] MEDS: Atorvastatin Calcium 40 MG TAB PO SCH (19:59)
[2022-12-19] MEDS ORDERED: HumaLOG 300 UNITS/3 ML VIAL SC PRN (03:50)
[2022-12-19] MEDS ORDERED: Dextrose 5% in Water 1,000 ML IV PRN (03:50)
[2022-12-19] MEDS: Acetaminophen 325 MG TAB PO SCH ×2 (05:31→07:03)
[2022-12-19 08:03] VITALS: BP 127/74
[2022-12-19] MEDS ORDERED: Insulin Glargine 30 UNITS/0.3 ML VIAL SC SCH (09:00)
[2022-12-19] MEDS: Metoclopramide 10 MG/10 ML UDCUP PO SCH (09:01)
[2022-12-19] MEDS: Metoprolol Tartrate 25 MG TAB PO SCH (09:02)
[2022-12-19] MEDS: Aspirin 81 mg Enteric Coated Tablet PO SCH (09:02)
[2022-12-19] MEDS: Sodium Bicarbonate Tab 325 MG TAB PO SCH (09:02)
[2022-12-19] MEDS: Amlodipine 10 MG TAB PO SCH (09:02)
[2022-12-19] MEDS: Pantoprazole 40 MG VIAL IVP SCH (09:03)
[2022-12-19] MEDS: Cholestyramine/Aspartame 4 gm Packet PO SCH (09:03)
[2022-12-19] MEDS: HYDROcodone/Acetaminophen 5/325 mg Tablet PO PRN (10:14)
== END 2022-12-19 12:32 | disposition home or self-care (01) | DRG 417 ==
LOC: ERS 08:57 → IMCU/EMU 13:20 → MSONC 12-13 19:23 → 2SW 12-16 19:59 → MSONC 12-16 19:59
PROVIDERS: ADMIT Internal Medicine; ATTEND Internal Medicine
PROC: 4A043R1 Measurement of Venous Saturation, Peripheral, Percutaneous Approach (ICD-10-PCS; 2022-12-10)
PROC: 0DB98ZX Excision of Duodenum, Via Natural or Artificial Opening Endoscopic, Diagnostic (ICD-10-PCS; 2022-12-14)
PROC: 0DB78ZX Excision of Stomach, Pylorus, Via Natural or Artificial Opening Endoscopic, Diagnostic (ICD-10-PCS; 2022-12-14)
PROC: 0DB28ZX Excision of Middle Esophagus, Via Natural or Artificial Opening Endoscopic, Diagnostic (ICD-10-PCS; 2022-12-14)
PROC: 0DB38ZX Excision of Lower Esophagus, Via Natural or Artificial Opening Endoscopic, Diagnostic (ICD-10-PCS; 2022-12-14)
PROC: 0FT44ZZ Resection of Gallbladder, Percutaneous Endoscopic Approach (ICD-10-PCS; principal; 2022-12-15)
DX: K80.00 Calculus of gallbladder with acute cholecystitis without obstruction (principal); E10.10 Type 1 diabetes mellitus with ketoacidosis without coma; E87.1 Hypo-osmolality and hyponatremia; N17.9 Acute kidney failure, unspecified; N39.0 Urinary tract infection, site not specified; K22.10 Ulcer of esophagus without bleeding; I10 Essential (primary) hypertension; I25.10 Atherosclerotic heart disease of native coronary artery without angina pectoris; K29.50 Unspecified chronic gastritis without bleeding; B96.81 Helicobacter pylori [H. pylori] as the cause of diseases classified elsewhere; R63.4 Abnormal weight loss; R53.1 Weakness; E66.01 Morbid (severe) obesity due to excess calories; E78.5 Hyperlipidemia, unspecified; E16.2 Hypoglycemia, unspecified; Z68.29 Body mass index [BMI] 29.0-29.9, adult; Z79.4 Long term (current) use of insulin; Z95.1 Presence of aortocoronary bypass graft; Z95.0 Presence of cardiac pacemaker; Z79.82 Long term (current) use of aspirin; Z79.899 Other long term (current) drug therapy; Z98.890 Other specified postprocedural states; Z98.891 History of uterine scar from previous surgery; Z82.49 Family history of ischemic heart disease and other diseases of the circulatory system; Z60.2 Problems related to living alone; E86.0 Dehydration
CPT/HCPCS: 36415; 36416; 74176; 76705; 80048; 80053; 80076; 81001; 82010; 82805; 83036; 83605; 83690; 83735; 83880; 84484; 85025; 87086; 88304; 88305; 88312; 88313; 88342; 93005; 96365; 96366; 96367; 96375; C1889; C9113; J0360; J0696; J1200; J1650; J1815; J1956; J2272; J2405; J2550; J2704; J2765; J3010; J3475; J3480; J3490; J7050; J7070; J7120; J7999; S0028

== ENCOUNTER 2023-01-26 18:32 | Inpatient (IN) | payer SELFPAY ==
[2023-01-26] MEDS ORDERED: Ondansetron PF 4 MG/2 ML Vial ONE (18:51)
[2023-01-26] MEDS ORDERED: Morphine 4 MG/ML VIAL ONE (18:51)
[2023-01-26 19:22] LABS: #Monocytes 0.3 thou/uL (0.11-0.59); #Neutrophils 4.7 thou/uL (1.40-6.50); %Basophils 0.3 % (0.0-1.0); %Eosinophils 0.5 % (0.0-10.0); %Monocytes 4.8 % (0.0-10.0); %Neutrophils 73.1 % (42.0-75.0); Hemoglobin 12.5 g/dL (12.0-16.0); Mean Corpuscular HGB CONC 34.7 g/dL (32.0-36.0); Mean Corpuscular Hemoglobin 29.3 pg (27.0-31.0); Mean Corpuscular Volume 84.5 fl (78.0-98.0); Mean Platelet Volume 9.1 fL (7.4-10.4); Platelet Count 459 10x3/uL (130-400); RBC Distribution Width 13.4 % (11.5-14.5); Red Blood Cell (RBC) Count 4.26 mill/uL (4.20-5.40); White Blood Cell (WBC) Count 6.4 10x3/uL (4.8-10.8)
[2023-01-26 19:40] LABS: Actual Bicarbonate (HCO3v) 18.4 mEq/L (22-28); Base Excess -4.4 mEq/L (-2.0 to +3.0); Calcium, Ionized (venous) 1.06 mmol/L (1.16-1.32); Chloride (VBG) 106 mmol/L (98-106); Hematocrit-VBG 41 % (36.0-47.0); Hemoglobin (Hb) 13.9 g/dL (11.7-16.0); Potassium (VBG) 2.82 mmol/L (3.70-5.30); Sodium 139.9 mmol/L (133-146); pH (venous) 7.434 (7.32-7.43)
[2023-01-26 19:44] LABS: ALT (SGPT) Less than 7 U/L (8-55); AST (SGOT) 13 U/L (5-34); Albumin 2.2 g/dL (3.5-5.0); Alkaline Phosphatase 132 U/L (40-110); Anion Gap 18 mmol/L (10-20); BUN (Urea Nitrogen) 25 mg/dL (9.8-20.1); Bilirubin, Total 0.4 mg/dL (0.2-1.2); Calc. Creatinine Clearance 0 mL/min (70-130); Calcium 8.6 mg/dL (7.8-10.44); Carbon Dioxide 18 mmol/L (22-29); Chloride 107 mmol/L (98-107); Estimated GFR 28; Globulin 4.4 g/dL (2.4-3.5); Glucose 384 mg/dL (70-105); Lipase 18 U/L (8-78); Magnesium 2.2 mg/dL (1.6-2.6); Potassium 2.9 mmol/L (3.5-5.1); Protein, Total 6.6 g/dL (6.0-8.3); Sodium 140 mmol/L (136-145)
[2023-01-26] MEDS ORDERED: NS 0.9% w/ 20 MEQ KCL 1,000 ML ONE (19:53)
[2023-01-26] MEDS ORDERED: Potassium Chloride 20 MEQ TAB ONE (19:53)
[2023-01-26] MEDS ORDERED: Ondansetron PF 4 MG/2 ML Vial IVP PRN (21:47)
[2023-01-26] MEDS ORDERED: Acetaminophen 325 MG TAB PO PRN (21:47)
[2023-01-26] MEDS ORDERED: Glucagon 1 MG/ML KIT IM PRN (22:08)
[2023-01-26] MEDS ORDERED: Dextrose 5% in Water 1,000 ML IV PRN (22:08)
[2023-01-26] MEDS ORDERED: Dextrose 50% Abboject 50 ML SYRINGE SLOW IVP PRN (22:08)
[2023-01-26] MEDS ORDERED: Pantoprazole 40 MG VIAL IVP SCH (22:15)
[2023-01-26] MEDS ORDERED: Potassium Chloride 20 MEQ in Premix Bag 1 BAG IVPB SCH (23:00)
[2023-01-26 23:11] LABS: Bacteria/HPF 4+ HPF (None Seen); Bilirubin Negative (Negative); Blood, Urine 3+ (Negative); CAUTI Indications for Culture Pelvic or flank pain; Clarity Extra Turbid (Clear); Glucose, Urine (Dipstick) Greater than 1000 mg/dL (Negative); Ketone, Urine 40 mg/dL (Negative); Leukocyte 500 Leu/uL (Negative); Nitrite Negative (Negative); Protein, Urine (Dipstick) 600 mg/dL (Neg-Trace); RBC/HPF 21-50 HPF (0-3); Specific Gravity, Urine 1.017 (1.002-1.036); Squamous Epithelial 21-50 HPF (0-3); Urobilinogen Normal mg/dL (Less than 2); WBC/HPF Greater than 50 HPF (0-3)
[2023-01-26 23:13] LABS: Urine Culture Reflex Yes Yes
[2023-01-26] MEDS: Sodium Chloride 0.9% 1,000 ML IV SCH (23:56)
[2023-01-27 00:29] VITALS: BMI 25.9
[2023-01-27] MEDS: HumaLOG 300 UNITS/3 ML VIAL SC PRN ×2 (01:07→05:54)
[2023-01-27] MEDS: cefTRIAXone\\ROCEPHIN 1 GM in Sodium Chloride 0.9% 100 ML IVPB SCH (02:09)
[2023-01-27 02:10] LABS: SARS-CoV-2 NAA Rapid Test Not Detected (NotDetected)
[2023-01-27 06:45] LABS: #Eosinphils 0.2 thou/uL (0.0-0.7); #Monocytes 0.5 thou/uL (0.11-0.59); #Neutrophils 4.6 thou/uL (1.40-6.50); %Basophils 0.3 % (0.0-1.0); %Lymphocytes 32.2 % (21.0-51.0); %Monocytes 6.9 % (0.0-10.0); %Neutrophils 58.5 % (42.0-75.0); Hemoglobin 9.9 g/dL (12.0-16.0); Mean Corpuscular HGB CONC 32.7 g/dL (32.0-36.0); Mean Corpuscular Hemoglobin 28.7 pg (27.0-31.0); Mean Platelet Volume 9.2 fL (7.4-10.4); Platelet Count 408 10x3/uL (130-400); RBC Distribution Width 13.8 % (11.5-14.5); Red Blood Cell (RBC) Count 3.45 mill/uL (4.20-5.40); White Blood Cell (WBC) Count 7.8 10x3/uL (4.8-10.8)
[2023-01-27 07:10] LABS: Anion Gap 12 mmol/L (10-20); BUN (Urea Nitrogen) 22 mg/dL (9.8-20.1); Calc. Creatinine Clearance 33 mL/min (70-130); Calcium 7.7 mg/dL (7.8-10.44); Carbon Dioxide 20 mmol/L (22-29); Chloride 114 mmol/L (98-107); Estimated GFR 30; Glucose 169 mg/dL (70-105); Potassium 2.8 mmol/L (3.5-5.1); Sodium 143 mmol/L (136-145)
[2023-01-27 07:18] LABS: Mean Corpuscular Volume 87.8 fl (78.0-98.0)
[2023-01-27 07:18] LABS: Bacteria/HPF 4+ HPF (None Seen); Bilirubin Negative (Negative); Blood, Urine 1+ (Negative); Clarity Extra Turbid (Clear); Glucose, Urine (Dipstick) 100 mg/dL (Negative); Ketone, Urine 20 mg/dL (Negative); Leukocyte 500 Leu/uL (Negative); Nitrite Negative (Negative); Protein, Urine (Dipstick) 100 mg/dL (Neg-Trace); Specific Gravity, Urine 1.018 (1.002-1.036); Urobilinogen Normal mg/dL (Less than 2); WBC/HPF Greater than 50 HPF (0-3); Yeast-Budding 2+ HPF (None Seen); pH, Urine 5.5 (5.0-9.0)
[2023-01-27] MEDS: Heparin 5,000 UNITS/ML VIAL SC SCH ×2 (08:41→20:37)
[2023-01-27] MEDS: Ondansetron PF 4 MG/2 ML Vial IVP PRN ×2 (08:42→16:00)
[2023-01-27] MEDS: Sodium Chloride 0.9% 1,000 ML IV SCH (08:42)
[2023-01-27] MEDS ORDERED: Pantoprazole 40 MG VIAL IVP SCH (09:00)
[2023-01-27] MEDS: Potassium Chloride 20 MEQ TAB PO SCH ×3 (13:06→16:27)
[2023-01-27] MEDS: Potassium Chloride 20 MEQ in Premix Bag 1 BAG IVPB SCH ×3 (17:20→22:07)
[2023-01-27] MEDS: Atorvastatin Calcium 40 MG TAB PO SCH (20:36)
[2023-01-28] MEDS: cefTRIAXone\\ROCEPHIN 1 GM in Sodium Chloride 0.9% 100 ML IVPB SCH (00:31)
[2023-01-28] MEDS: Sodium Chloride 0.9% 1,000 ML IV SCH ×2 (00:32→13:12)
[2023-01-28 06:11] LABS: #Eosinphils 0.1 thou/uL (0.0-0.7); #Monocytes 0.5 thou/uL (0.11-0.59); #Neutrophils 4.8 thou/uL (1.40-6.50); %Basophils 0.4 % (0.0-1.0); %Eosinophils 1.8 % (0.0-10.0); %Lymphocytes 30.2 % (21.0-51.0); %Neutrophils 61.2 % (42.0-75.0); Hemoglobin 10.7 g/dL (12.0-16.0); Mean Corpuscular HGB CONC 31.9 g/dL (32.0-36.0); Mean Corpuscular Hemoglobin 29.2 pg (27.0-31.0); Mean Platelet Volume 9.3 fL (7.4-10.4); Platelet Count 433 10x3/uL (130-400); RBC Distribution Width 14.2 % (11.5-14.5); Red Blood Cell (RBC) Count 3.66 mill/uL (4.20-5.40); White Blood Cell (WBC) Count 7.8 10x3/uL (4.8-10.8)
[2023-01-28 06:25] LABS: Mean Corpuscular Volume 91.5 fl (78.0-98.0)
[2023-01-28] MEDS: HumaLOG 300 UNITS/3 ML VIAL SC PRN ×2 (06:28→16:25)
[2023-01-28 06:46] LABS: Anion Gap 15 mmol/L (10-20); BUN (Urea Nitrogen) 20 mg/dL (9.8-20.1); Calc. Creatinine Clearance 35 mL/min (70-130); Calcium 8.1 mg/dL (7.8-10.44); Carbon Dioxide 14 mmol/L (22-29); Chloride 116 mmol/L (98-107); Estimated GFR 33; Glucose 209 mg/dL (70-105); Magnesium 1.8 mg/dL (1.6-2.6); Potassium 3.5 mmol/L (3.5-5.1); Sodium 141 mmol/L (136-145)
[2023-01-28] MEDS: Heparin 5,000 UNITS/ML VIAL SC SCH ×2 (08:16→21:14)
[2023-01-28] MEDS: Ondansetron PF 4 MG/2 ML Vial IVP PRN (08:20)
[2023-01-28] MEDS: Acetaminophen 325 MG TAB PO PRN (12:41)
[2023-01-28] MEDS: hydrALAZINE 25 MG TAB PO PRN (13:12)
[2023-01-28] MEDS: Atorvastatin Calcium 40 MG TAB PO SCH (21:14)
[2023-01-29] MEDS: cefTRIAXone\\ROCEPHIN 1 GM in Sodium Chloride 0.9% 100 ML IVPB SCH (00:06)
[2023-01-29] MEDS: Sodium Chloride 0.9% 1,000 ML IV SCH ×2 (04:20→17:33)
[2023-01-29] MEDS: HumaLOG 300 UNITS/3 ML VIAL SC PRN ×3 (05:47→17:34)
[2023-01-29 05:59] LABS: #Eosinphils 0.2 thou/uL (0.0-0.7); #Monocytes 0.4 thou/uL (0.11-0.59); #Neutrophils 3.7 thou/uL (1.40-6.50); %Basophils 0.5 % (0.0-1.0); %Eosinophils 3.3 % (0.0-10.0); %Lymphocytes 28.4 % (21.0-51.0); %Monocytes 6.4 % (0.0-10.0); %Neutrophils 61.2 % (42.0-75.0); Hemoglobin 10.1 g/dL (12.0-16.0); Mean Corpuscular HGB CONC 33.2 g/dL (32.0-36.0); Mean Corpuscular Hemoglobin 28.9 pg (27.0-31.0); Mean Platelet Volume 9.4 fL (7.4-10.4); Platelet Count 365 10x3/uL (130-400); RBC Distribution Width 14.1 % (11.5-14.5); White Blood Cell (WBC) Count 6.1 10x3/uL (4.8-10.8)
[2023-01-29 06:23] LABS: Anion Gap 11 mmol/L (10-20); BUN (Urea Nitrogen) 16 mg/dL (9.8-20.1); Calc. Creatinine Clearance 43 mL/min (70-130); Calcium 7.6 mg/dL (7.8-10.44); Carbon Dioxide 16 mmol/L (22-29); Chloride 114 mmol/L (98-107); Estimated GFR 41; Glucose 209 mg/dL (70-105); Magnesium 1.6 mg/dL (1.6-2.6); Potassium 3.1 mmol/L (3.5-5.1); Sodium 138 mmol/L (136-145)
[2023-01-29 06:36] LABS: Mean Corpuscular Volume 86.9 fl (78.0-98.0)
[2023-01-29] MEDS ORDERED: Potassium Chloride 20 MEQ TAB PO SCH (08:00)
[2023-01-29] MEDS: Ondansetron PF 4 MG/2 ML Vial IVP PRN ×2 (08:24→17:37)
[2023-01-29] MEDS: Heparin 5,000 UNITS/ML VIAL SC SCH ×2 (09:31→20:33)
[2023-01-29 20:07] LABS: Campy jejuni + coli by PCR Negative (Negative); STEC Shiga Toxin 1+2 Negative (Negative); Salmonella spp. by PCR Negative (Negative); Shigella spp + EIEC by PCR Negative (Negative)
[2023-01-29] MEDS: Atorvastatin Calcium 40 MG TAB PO SCH (20:33)
[2023-01-30] MEDS: cefTRIAXone\\ROCEPHIN 1 GM in Sodium Chloride 0.9% 100 ML IVPB SCH (00:02)
[2023-01-30] MEDS: Sodium Chloride 0.9% 1,000 ML IV SCH ×2 (09:02→20:20)
[2023-01-30] MEDS: Heparin 5,000 UNITS/ML VIAL SC SCH ×2 (09:03→20:13)
[2023-01-30 09:34] LABS: #Eosinphils 0.2 thou/uL (0.0-0.7); #Monocytes 0.4 thou/uL (0.11-0.59); #Neutrophils 4.9 thou/uL (1.40-6.50); %Basophils 0.2 % (0.0-1.0); %Eosinophils 2.5 % (0.0-10.0); %Monocytes 4.7 % (0.0-10.0); %Neutrophils 61.4 % (42.0-75.0); Hemoglobin 11.3 g/dL (12.0-16.0); Mean Corpuscular HGB CONC 31.9 g/dL (32.0-36.0); Mean Corpuscular Hemoglobin 29.4 pg (27.0-31.0); Mean Corpuscular Volume 91.9 fl (78.0-98.0); Mean Platelet Volume 9.5 fL (7.4-10.4); Platelet Count 418 10x3/uL (130-400); RBC Distribution Width 14.6 % (11.5-14.5); Red Blood Cell (RBC) Count 3.85 mill/uL (4.20-5.40); White Blood Cell (WBC) Count 8.1 10x3/uL (4.8-10.8)
[2023-01-30 09:54] LABS: Anion Gap 10 mmol/L (10-20); BUN (Urea Nitrogen) 13 mg/dL (9.8-20.1); Calc. Creatinine Clearance 39 mL/min (70-130); Calcium 8.1 mg/dL (7.8-10.44); Carbon Dioxide 17 mmol/L (22-29); Chloride 113 mmol/L (98-107); Estimated GFR 37; Glucose 200 mg/dL (70-105); Potassium 3.1 mmol/L (3.5-5.1); Sodium 137 mmol/L (136-145)
[2023-01-30] MEDS: HumaLOG 300 UNITS/3 ML VIAL SC PRN ×2 (11:51→21:39)
[2023-01-30] MEDS: Atorvastatin Calcium 40 MG TAB PO SCH (20:13)
[2023-01-31] MEDS: cefTRIAXone\\ROCEPHIN 1 GM in Sodium Chloride 0.9% 100 ML IVPB SCH (00:24)
[2023-01-31] MEDS: Sodium Chloride 0.9% 1,000 ML IV SCH ×2 (00:25→16:22)
[2023-01-31] MEDS: HumaLOG 300 UNITS/3 ML VIAL SC PRN ×3 (06:24→16:21)
[2023-01-31] MEDS: Heparin 5,000 UNITS/ML VIAL SC SCH ×2 (08:21→20:33)
[2023-01-31] MEDS ORDERED: Cefdinir 300 MG CAP PO SCH (09:45)
[2023-01-31] MEDS: Acetaminophen 325 MG TAB PO PRN (11:48)
[2023-01-31] MEDS: Atorvastatin Calcium 40 MG TAB PO SCH (20:33)
[2023-01-31] MEDS: Cefdinir 300 MG CAP PO SCH (20:41)
[2023-01-31] MEDS: hydrALAZINE 25 MG TAB PO PRN (20:45)
[2023-02-01] MEDS: HumaLOG 300 UNITS/3 ML VIAL SC PRN (05:44)
[2023-02-01] MEDS: Cefdinir 300 MG CAP PO SCH (08:15)
[2023-02-01] MEDS: Heparin 5,000 UNITS/ML VIAL SC SCH (08:15)
[2023-02-01 11:07] VITALS: BP 150/100; TEMP 97.4
[2023-02-01] MEDS: Sodium Chloride 0.9% 1,000 ML IV SCH (11:29)
== END 2023-02-01 11:37 | disposition home or self-care (01) | DRG 683 ==
LOC: ERS 18:32 → T4-A 21:45 → OBSVTOIN 01-27 12:41
PROVIDERS: ADMIT Internal Medicine; ATTEND Internal Medicine
PROC: 4A043R1 Measurement of Venous Saturation, Peripheral, Percutaneous Approach (ICD-10-PCS; principal; 2023-01-26)
DX: N17.9 Acute kidney failure, unspecified (principal); L03.314 Cellulitis of groin; N39.0 Urinary tract infection, site not specified; E87.6 Hypokalemia; I25.10 Atherosclerotic heart disease of native coronary artery without angina pectoris; E11.22 Type 2 diabetes mellitus with diabetic chronic kidney disease; N18.30 Chronic kidney disease, stage 3 unspecified; K21.9 Gastro-esophageal reflux disease without esophagitis; E86.0 Dehydration; R19.7 Diarrhea, unspecified; Z20.822 Contact with and (suspected) exposure to COVID-19; Z79.82 Long term (current) use of aspirin; Z79.899 Other long term (current) drug therapy; Z79.4 Long term (current) use of insulin; Z95.1 Presence of aortocoronary bypass graft; Z90.49 Acquired absence of other specified parts of digestive tract; Z95.0 Presence of cardiac pacemaker; Z83.3 Family history of diabetes mellitus
CPT/HCPCS: 36415; 36416; 51798; 71045; 74176; 80048; 80053; 81001; 81003; 81015; 82010; 82805; 83605; 83690; 83735; 83880; 83930; 84443; 84484; 85025; 87077; 87086; 87324; 87449; 87505; 96361; 96365; 96366; 96372; 96375; 96376; C9113; G0378; J0696; J1644; J1815; J2270; J2405; J3480; J3490; J7050

== ENCOUNTER 2023-03-29 13:02 | Inpatient (IN) | payer OTHER ==
[2023-03-29 14:13] LABS: #Eosinphils 0.2 thou/uL (0.0-0.7); #Monocytes 0.4 thou/uL (0.11-0.59); #Neutrophils 7.1 thou/uL (1.40-6.50); %Basophils 0.4 % (0.0-1.0); %Lymphocytes 23.7 % (21.0-51.0); %Monocytes 3.6 % (0.0-10.0); %Neutrophils 69.9 % (42.0-75.0); Hematocrit 31.9 % (36.0-47.0); Mean Corpuscular HGB CONC 34.5 g/dL (32.0-36.0); Mean Corpuscular Volume 86.9 fl (78.0-98.0); Mean Platelet Volume 11.1 fL (7.4-10.4); Platelet Count 433 10x3/uL (130-400); RBC Distribution Width 13.2 % (11.5-14.5); Red Blood Cell (RBC) Count 3.67 mill/uL (4.20-5.40); White Blood Cell (WBC) Count 10.2 10x3/uL (4.8-10.8)
[2023-03-29 15:10] LABS: Albumin 2.3 g/dL (3.4-4.8)
[2023-03-29 15:12] LABS: Calcium 8.6 mg/dL (7.8-10.44); Chloride 98 mmol/L (98-107); Sodium 132 mmol/L (136-145)
[2023-03-29 15:13] LABS: Globulin 4.3 g/dL (2.4-3.5); Protein, Total 6.6 g/dL (5.8-8.1)
[2023-03-29 15:14] LABS: Anion Gap 11 mmol/L (10-20)
[2023-03-29 15:15] LABS: Bilirubin, Total Less than 0.2 mg/dL (0.2-1.2)
[2023-03-29 15:16] LABS: Alkaline Phosphatase 131 U/L (40-110); Calc. Creatinine Clearance 0 mL/min (70-130)
[2023-03-29 15:17] LABS: BUN (Urea Nitrogen) 20 mg/dL (9.8-20.1); Estimated GFR 26
[2023-03-29 15:18] LABS: AST (SGOT) 14 U/L (5-34)
[2023-03-29 15:24] LABS: Glucose 423 mg/dL (80-115); Potassium 2.5 mmol/L (3.5-5.1)
[2023-03-29] MEDS ORDERED: Cefepime 1 GM VIAL ONE (15:53)
[2023-03-29] MEDS ORDERED: Potassium Chloride 20 MEQ TAB ONE (15:53)
[2023-03-29] MEDS ORDERED: Ondansetron PF 4 MG/2 ML Vial IVP PRN (16:14)
[2023-03-29] MEDS ORDERED: Ondansetron ODT 4 MG TAB PO PRN (16:14)
[2023-03-29] MEDS ORDERED: Glucagon 1 MG/ML KIT IM PRN (16:38)
[2023-03-29] MEDS ORDERED: HumaLOG 300 UNITS/3 ML VIAL SC PRN (16:38)
[2023-03-29] MEDS ORDERED: Dextrose 50% Abboject 50 ML SYRINGE SLOW IVP PRN (16:38)
[2023-03-29] MEDS ORDERED: Dextrose 5% in Water 1,000 ML IV PRN (16:38)
[2023-03-29] MEDS ORDERED: Potassium Bicarbonate/Cit Ac 20 MEQ TAB PO SCH ×2 (16:45→20:00)
[2023-03-29] MEDS ORDERED: Clindamycin/D5W 900 MG in Premix Bag 1 BAG IVPB SCH (16:45)
[2023-03-29] MEDS ORDERED: Vancomycin 1 GM in Premix Bag 1 BAG IVPB SCH ×2 (16:45→17:00)
[2023-03-29] MEDS ORDERED: NS 0.9% w/ 40 MEQ KCL 1,000 ML IV SCH (17:00)
[2023-03-29 17:04] LABS: Hemoglobin A1c 12.1 % (4.0-6.0)
[2023-03-29] MEDS ORDERED: Vancomycin 1 GM/200 ML (FROZEN) BAG ONE (17:06)
[2023-03-29] MEDS ORDERED: Clindamycin 150 MG CAP PO SCH (17:15)
[2023-03-29 17:36] LABS: Bacteria/HPF 2+ HPF (None Seen); Bilirubin Negative (Negative); Blood, Urine 2+ (Negative); CAUTI Indications for Culture Pelvic or flank pain; Clarity Clear (Clear); Glucose, Urine (Dipstick) Greater than 1000 mg/dL (Negative); Ketone, Urine Negative (Negative); Leukocyte Negative Leu/uL (Negative); Nitrite Negative (Negative); Protein, Urine (Dipstick) 300 mg/dL (Neg-Trace); RBC/HPF 0-3 HPF (0-3); Specific Gravity, Urine 1.017 (1.002-1.036); Squamous Epithelial 0-3 HPF (0-3); Urobilinogen Normal mg/dL (Less than 2)
[2023-03-29 17:37] LABS: Urine Culture Reflex No No
[2023-03-29] MEDS ORDERED: Electrolyte Replacement Protocol 1 EACH FS SCH (18:00)
[2023-03-29 19:09] VITALS: BMI 28.3
[2023-03-29] MEDS: Sodium Chloride 0.9% 1,000 ML IV SCH (20:34)
[2023-03-29] MEDS: HumaLOG 300 UNITS/3 ML VIAL SC PRN (21:36)
[2023-03-29 21:47] LABS: Potassium 2.4 mmol/L (3.5-5.1)
[2023-03-29] MEDS ORDERED: Labetalol HCl 100 MG TAB PO SCH (23:15)
[2023-03-30 02:44] LABS: Anion Gap 12 mmol/L (10-20); BUN (Urea Nitrogen) 17 mg/dL (9.8-20.1); Calc. Creatinine Clearance 43 mL/min (70-130); Calcium 7.8 mg/dL (7.8-10.44); Carbon Dioxide 24 mmol/L (23-31); Chloride 107 mmol/L (98-107); Estimated GFR 37; Glucose 132 mg/dL (80-115); Magnesium 1.9 mg/dL (1.6-2.6); Phosphorus 2.2 mg/dL (2.3-4.7); Potassium 2.8 mmol/L (3.5-5.1); Sodium 140 mmol/L (136-145)
[2023-03-30] MEDS ORDERED: Magnesium 2 GM/50 ML(in water) 2 GM in Premix Bag 1 BAG IVPB SCH (03:30)
[2023-03-30 03:33] LABS: #Eosinphils 0.2 thou/uL (0.0-0.7); #Monocytes 0.5 thou/uL (0.11-0.59); #Neutrophils 5.6 thou/uL (1.40-6.50); %Basophils 0.2 % (0.0-1.0); %Eosinophils 2.3 % (0.0-10.0); %Lymphocytes 22.9 % (21.0-51.0); %Monocytes 6.5 % (0.0-10.0); %Neutrophils 67.9 % (42.0-75.0); Hematocrit 27.1 % (36.0-47.0); Mean Corpuscular HGB CONC 33.2 g/dL (32.0-36.0); Mean Corpuscular Hemoglobin 29.3 pg (27.0-31.0); Mean Corpuscular Volume 88.3 fl (78.0-98.0); Mean Platelet Volume 9.5 fL (7.4-10.4); RBC Distribution Width 12.8 % (11.5-14.5); Red Blood Cell (RBC) Count 3.07 mill/uL (4.20-5.40); White Blood Cell (WBC) Count 8.2 10x3/uL (4.8-10.8)
[2023-03-30 03:51] LABS: Platelet Count 320 10x3/uL (130-400)
[2023-03-30] MEDS: Potassium Bicarbonate/Cit Ac 20 MEQ TAB PO SCH ×2 (03:55→08:58)
[2023-03-30] MEDS: Losartan 25 MG TAB PO SCH (08:57)
[2023-03-30] MEDS: Insulin Glargine 30 UNITS/0.3 ML VIAL SC SCH (08:58)
[2023-03-30] MEDS ORDERED: Losartan/Hydrochlorothiazide 100 mg/25 mg Tablet PO SCH (09:00)
[2023-03-30] MEDS: Cefepime 1 GM in Sodium Chloride 0.9% 100 ML IVPB SCH ×2 (09:28→22:29)
[2023-03-30] MEDS ORDERED: Electrolyte Replacement Protocol FS PRN (09:30)
[2023-03-30 09:43] LABS: ALT (SGPT) Less than 7 U/L (8-55); Carbon Dioxide 26 mmol/L (23-31)
[2023-03-30] MEDS ORDERED: Amlodipine 5 MG TAB PO SCH (13:00)
[2023-03-30] MEDS ORDERED: Amlodipine 10 MG TAB PO SCH (13:00)
[2023-03-30] MEDS: Sodium Chloride 0.9% 1,000 ML IV SCH (14:27)
[2023-03-30 15:34] LABS: Phosphorus 2.6 mg/dL (2.3-4.7); Potassium 3.3 mmol/L (3.5-5.1)
[2023-03-30] MEDS: HumaLOG 300 UNITS/3 ML VIAL SC PRN ×2 (17:32→21:04)
[2023-03-30] MEDS ORDERED: Potassium Bicarbonate/Cit Ac 20 MEQ TAB PO SCH (20:30)
[2023-03-30] MEDS ORDERED: Insulin Glargine 30 UNITS/0.3 ML VIAL SC SCH (21:00)
[2023-03-30] MEDS: Atorvastatin Calcium 40 MG TAB PO SCH (21:03)
[2023-03-30] MEDS: Vancomycin 1 GM in Premix Bag 1 BAG IVPB SCH (21:07)
[2023-03-31 04:23] LABS: #Eosinphils 0.3 thou/uL (0.0-0.7); #Monocytes 0.5 thou/uL (0.11-0.59); #Neutrophils 4.1 thou/uL (1.40-6.50); %Basophils 0.1 % (0.0-1.0); %Eosinophils 3.4 % (0.0-10.0); %Lymphocytes 36.8 % (21.0-51.0); %Monocytes 6.1 % (0.0-10.0); %Neutrophils 53.3 % (42.0-75.0); Hematocrit 27.9 % (36.0-47.0); Hemoglobin 9.1 g/dL (12.0-16.0); Mean Corpuscular HGB CONC 32.6 g/dL (32.0-36.0); Mean Corpuscular Hemoglobin 29.4 pg (27.0-31.0); Mean Corpuscular Volume 90.3 fl (78.0-98.0); Mean Platelet Volume 9.4 fL (7.4-10.4); Platelet Count 314 10x3/uL (130-400); Red Blood Cell (RBC) Count 3.09 mill/uL (4.20-5.40); White Blood Cell (WBC) Count 7.8 10x3/uL (4.8-10.8)
[2023-03-31 05:03] LABS: Anion Gap 13 mmol/L (10-20); BUN (Urea Nitrogen) 17 mg/dL (9.8-20.1); Calc. Creatinine Clearance 39 mL/min (70-130); Calcium 7.9 mg/dL (7.8-10.44); Carbon Dioxide 23 mmol/L (23-31); Chloride 103 mmol/L (98-107); Estimated GFR 33; Glucose 182 mg/dL (80-115); Potassium 4.2 mmol/L (3.5-5.1); Sodium 135 mmol/L (136-145)
[2023-03-31] MEDS: HumaLOG 300 UNITS/3 ML VIAL SC PRN (06:02)
[2023-03-31] MEDS ORDERED: Amlodipine 5 MG TAB PO SCH (09:00)
[2023-03-31] MEDS: Cefepime 1 GM in Sodium Chloride 0.9% 100 ML IVPB SCH ×2 (09:13→22:38)
[2023-03-31] MEDS: Losartan 25 MG TAB PO SCH (09:14)
[2023-03-31] MEDS: Sodium Chloride 0.9% 1,000 ML IV SCH ×2 (09:39→11:27)
[2023-03-31] MEDS: Insulin Glargine 30 UNITS/0.3 ML VIAL SC SCH (09:39)
[2023-03-31 09:44] LABS: Anion Gap 11 mmol/L (10-20); BUN (Urea Nitrogen) 16 mg/dL (9.8-20.1); Calc. Creatinine Clearance 41 mL/min (70-130); Carbon Dioxide 24 mmol/L (23-31); Chloride 105 mmol/L (98-107); Estimated GFR 35; Glucose 91 mg/dL (80-115); Potassium 3.8 mmol/L (3.5-5.1); Sodium 136 mmol/L (136-145)
[2023-03-31] MEDS ORDERED: Dextrose 10% in Water 1,000 ML IV SCH (10:00)
[2023-03-31] MEDS: Acetaminophen 325 MG TAB PO PRN (13:11)
[2023-03-31] MEDS ORDERED: hydrALAZINE 20 MG/ML VIAL SLOW IVP PRN (13:18)
[2023-03-31] MEDS: Calcium Carbonate 500 MG ChewTAB PO PRN (18:04)
[2023-03-31 20:40] LABS: Vancomycin, Trough 17.9 ug/mL
[2023-03-31] MEDS: Atorvastatin Calcium 40 MG TAB PO SCH (20:51)
[2023-03-31] MEDS: Vancomycin 1 GM in Premix Bag 1 BAG IVPB SCH (20:51)
[2023-03-31] MEDS: Amlodipine 5 MG TAB PO SCH (20:51)
[2023-04-01] MEDS: Acetaminophen 325 MG TAB PO PRN ×2 (02:43→08:03)
[2023-04-01 04:25] LABS: #Eosinphils 0.3 thou/uL (0.0-0.7); #Monocytes 0.5 thou/uL (0.11-0.59); #Neutrophils 4.7 thou/uL (1.40-6.50); %Basophils 0.2 % (0.0-1.0); %Eosinophils 3.1 % (0.0-10.0); %Lymphocytes 32.6 % (21.0-51.0); %Monocytes 5.8 % (0.0-10.0); %Neutrophils 58.1 % (42.0-75.0); Hematocrit 25.6 % (36.0-47.0); Hemoglobin 8.3 g/dL (12.0-16.0); Mean Corpuscular HGB CONC 32.4 g/dL (32.0-36.0); Mean Corpuscular Hemoglobin 29.2 pg (27.0-31.0); Mean Corpuscular Volume 90.1 fl (78.0-98.0); Mean Platelet Volume 9.6 fL (7.4-10.4); Platelet Count 281 10x3/uL (130-400); RBC Distribution Width 13.1 % (11.5-14.5); Red Blood Cell (RBC) Count 2.84 mill/uL (4.20-5.40); White Blood Cell (WBC) Count 8.1 10x3/uL (4.8-10.8)
[2023-04-01 04:54] LABS: Anion Gap 10 mmol/L (10-20); BUN (Urea Nitrogen) 19 mg/dL (9.8-20.1); Calc. Creatinine Clearance 34 mL/min (70-130); Calcium 7.3 mg/dL (7.8-10.44); Carbon Dioxide 21 mmol/L (23-31); Chloride 105 mmol/L (98-107); Estimated GFR 28; Glucose 246 mg/dL (80-115); Potassium 4.2 mmol/L (3.5-5.1); Sodium 132 mmol/L (136-145)
[2023-04-01] MEDS: Sodium Chloride 0.9% 1,000 ML IV SCH (06:29)
[2023-04-01] MEDS: Amlodipine 5 MG TAB PO SCH ×2 (08:03→19:59)
[2023-04-01] MEDS: Insulin Glargine 30 UNITS/0.3 ML VIAL SC SCH (08:03)
[2023-04-01] MEDS: Losartan 25 MG TAB PO SCH (08:03)
[2023-04-01] MEDS: Cefepime 1 GM in Sodium Chloride 0.9% 100 ML IVPB SCH (09:07)
[2023-04-01] MEDS ORDERED: Vancomycin Dose by Levels Sliding Scale (Wt 71-99) FS SCH (10:45)
[2023-04-01] MEDS: HumaLOG 300 UNITS/3 ML VIAL SC PRN (11:26)
[2023-04-01] MEDS: Calcium Carbonate 500 MG ChewTAB PO PRN ×2 (11:27→20:03)
[2023-04-01] MEDS ORDERED: Benzocaine 20% Spray 60 ML CAN FS SCH (13:15)
[2023-04-01] MEDS: LevoFLOXacin 750 MG TAB PO SCH (13:41)
[2023-04-01] MEDS: Cephalexin 250 MG CAP PO SCH (19:59)
[2023-04-01] MEDS: Atorvastatin Calcium 40 MG TAB PO SCH (19:59)
[2023-04-02 05:14] LABS: #Eosinphils 0.2 thou/uL (0.0-0.7); #Monocytes 0.4 thou/uL (0.11-0.59); #Neutrophils 3.3 thou/uL (1.40-6.50); %Basophils 0.3 % (0.0-1.0); %Eosinophils 3.6 % (0.0-10.0); %Lymphocytes 36.4 % (21.0-51.0); %Monocytes 6.2 % (0.0-10.0); %Neutrophils 53.3 % (42.0-75.0); Hematocrit 28.4 % (36.0-47.0); Hemoglobin 9.1 g/dL (12.0-16.0); Mean Corpuscular Hemoglobin 29.3 pg (27.0-31.0); Mean Corpuscular Volume 91.3 fl (78.0-98.0); Mean Platelet Volume 9.8 fL (7.4-10.4); Platelet Count 287 10x3/uL (130-400); RBC Distribution Width 12.9 % (11.5-14.5); Red Blood Cell (RBC) Count 3.11 mill/uL (4.20-5.40); White Blood Cell (WBC) Count 6.1 10x3/uL (4.8-10.8)
[2023-04-02 05:39] LABS: Anion Gap 11 mmol/L (10-20); BUN (Urea Nitrogen) 24 mg/dL (9.8-20.1); Calc. Creatinine Clearance 34 mL/min (70-130); Calcium 7.9 mg/dL (7.8-10.44); Carbon Dioxide 21 mmol/L (23-31); Chloride 103 mmol/L (98-107); Estimated GFR 28; Glucose 252 mg/dL (80-115); Potassium 4.3 mmol/L (3.5-5.1); Sodium 131 mmol/L (136-145)
[2023-04-02] MEDS: Losartan 25 MG TAB PO SCH (08:40)
[2023-04-02] MEDS: Amlodipine 5 MG TAB PO SCH ×2 (08:41→20:52)
[2023-04-02] MEDS: Cephalexin 250 MG CAP PO SCH ×2 (08:41→20:52)
[2023-04-02] MEDS: Insulin Glargine 30 UNITS/0.3 ML VIAL SC SCH (08:41)
[2023-04-02] MEDS ORDERED: Cefepime 1 GM in Sodium Chloride 0.9% 100 ML IVPB SCH (10:00)
[2023-04-02] MEDS: HumaLOG 300 UNITS/3 ML VIAL SC PRN (11:49)
[2023-04-02] MEDS: Calcium Carbonate 500 MG ChewTAB PO PRN (11:56)
[2023-04-02] MEDS: Atorvastatin Calcium 40 MG TAB PO SCH (20:52)
[2023-04-02] MEDS: Acetaminophen 325 MG TAB PO PRN (20:53)
[2023-04-03 04:38] LABS: #Eosinphils 0.2 thou/uL (0.0-0.7); #Monocytes 0.4 thou/uL (0.11-0.59); #Neutrophils 2.7 thou/uL (1.40-6.50); %Basophils 0.3 % (0.0-1.0); %Eosinophils 4.1 % (0.0-10.0); %Lymphocytes 43.3 % (21.0-51.0); %Neutrophils 45.8 % (42.0-75.0); Hematocrit 28.6 % (36.0-47.0); Hemoglobin 9.1 g/dL (12.0-16.0); Mean Corpuscular HGB CONC 31.8 g/dL (32.0-36.0); Mean Corpuscular Hemoglobin 28.9 pg (27.0-31.0); Mean Corpuscular Volume 90.8 fl (78.0-98.0); Mean Platelet Volume 9.7 fL (7.4-10.4); Platelet Count 293 10x3/uL (130-400); RBC Distribution Width 12.8 % (11.5-14.5); Red Blood Cell (RBC) Count 3.15 mill/uL (4.20-5.40); White Blood Cell (WBC) Count 5.8 10x3/uL (4.8-10.8)
[2023-04-03 05:06] LABS: Anion Gap 11 mmol/L (10-20); BUN (Urea Nitrogen) 27 mg/dL (9.8-20.1); Calc. Creatinine Clearance 34 mL/min (70-130); Carbon Dioxide 22 mmol/L (23-31); Chloride 104 mmol/L (98-107); Estimated GFR 28; Glucose 225 mg/dL (80-115); Potassium 4.1 mmol/L (3.5-5.1); Sodium 133 mmol/L (136-145)
[2023-04-03] MEDS: Amlodipine 5 MG TAB PO SCH ×2 (08:51→20:56)
[2023-04-03] MEDS: Insulin Glargine 30 UNITS/0.3 ML VIAL SC SCH (08:52)
[2023-04-03] MEDS: Cephalexin 250 MG CAP PO SCH ×2 (08:52→20:56)
[2023-04-03] MEDS: Losartan 25 MG TAB PO SCH (08:52)
[2023-04-03] MEDS: Acetaminophen 325 MG TAB PO PRN (10:27)
[2023-04-03] MEDS: Calcium Carbonate 500 MG ChewTAB PO PRN (11:50)
[2023-04-03] MEDS: HumaLOG 300 UNITS/3 ML VIAL SC PRN (13:06)
[2023-04-03] MEDS: LevoFLOXacin 750 MG TAB PO SCH (13:09)
[2023-04-03] MEDS ORDERED: Sodium Chloride 0.9% 1,000 ML IV SCH ×2 (13:45)
[2023-04-03] MEDS ORDERED: EPOETIN ALFA-EPBX (ESRD) 10,000 UNITS/ML VIAL SC SCH (15:00)
[2023-04-03] MEDS: Metoprolol Tartrate 25 MG TAB PO SCH (20:56)
[2023-04-03] MEDS: Atorvastatin Calcium 40 MG TAB PO SCH (20:56)
[2023-04-03 22:48] LABS: Creatinine, Urine 61.39 mg/dL (47-110)
[2023-04-04 06:30] LABS: Sodium 132 mmol/L (136-145)
[2023-04-04 06:31] LABS: Anion Gap 7 mmol/L (10-20); BUN (Urea Nitrogen) 27 mg/dL (9.8-20.1); Calc. Creatinine Clearance 28 mL/min (70-130); Calcium 7.9 mg/dL (7.6-10.4); Carbon Dioxide 23 mmol/L (23-31); Chloride 106 mmol/L (98-107); Estimated GFR 22; Glucose 192 mg/dL (80-115); Iron 44 ug/dL (50-170); Iron Binding Capacity, Total 158 mcg/dL (265-497); Potassium 4.4 mmol/L (3.5-5.1)
[2023-04-04 06:32] LABS: Ferritin 274.69 ng/mL (10-291); Vitamin D, 25 Hydroxy 5.1 ng/mL (> 30.0)
[2023-04-04] MEDS: HumaLOG 300 UNITS/3 ML VIAL SC PRN ×2 (06:52→18:11)
[2023-04-04] MEDS ORDERED: Albumin 25% 25 GM/100 ML BOT IVPB SCH (08:00)
[2023-04-04] MEDS: Amlodipine 5 MG TAB PO SCH ×2 (08:23→20:28)
[2023-04-04] MEDS: Metoprolol Tartrate 25 MG TAB PO SCH ×2 (08:23→20:28)
[2023-04-04] MEDS: Insulin Glargine 30 UNITS/0.3 ML VIAL SC SCH (08:24)
[2023-04-04] MEDS: Cephalexin 250 MG CAP PO SCH (08:24)
[2023-04-04] MEDS: Albumin 25% 25 GM/100 ML BOT IVPB SCH ×3 (09:24→20:27)
[2023-04-04] MEDS ORDERED: Ergocalciferol 1.25 MG(50,000 UNITS) CAP PO SCH (10:00)
[2023-04-04] MEDS: Sodium Chloride 0.9% 1,000 ML IV SCH (16:46)
[2023-04-04] MEDS: Heparin 5,000 UNITS/ML VIAL SC SCH (20:27)
[2023-04-04] MEDS: Atorvastatin Calcium 40 MG TAB PO SCH (20:28)
[2023-04-04] MEDS: Acetaminophen 325 MG TAB PO PRN (20:42)
[2023-04-05] MEDS: Sodium Chloride 0.9% 1,000 ML IV SCH ×3 (02:51→18:09)
[2023-04-05] MEDS: Albumin 25% 25 GM/100 ML BOT IVPB SCH (02:52)
[2023-04-05 05:48] LABS: Anion Gap 11 mmol/L (10-20); BUN (Urea Nitrogen) 27 mg/dL (9.8-20.1); Calc. Creatinine Clearance 31 mL/min (70-130); Calcium 8.1 mg/dL (7.8-10.44); Carbon Dioxide 21 mmol/L (23-31); Chloride 107 mmol/L (98-107); Estimated GFR 25; Glucose 228 mg/dL (80-115); Potassium 4.6 mmol/L (3.5-5.1); Sodium 134 mmol/L (136-145)
[2023-04-05] MEDS: Amlodipine 5 MG TAB PO SCH ×2 (09:07→20:40)
[2023-04-05] MEDS: Heparin 5,000 UNITS/ML VIAL SC SCH ×3 (09:08→20:41)
[2023-04-05] MEDS: Insulin Glargine 30 UNITS/0.3 ML VIAL SC SCH (09:08)
[2023-04-05] MEDS: Metoprolol Tartrate 25 MG TAB PO SCH ×2 (09:09→20:41)
[2023-04-05] MEDS: LevoFLOXacin 750 MG TAB PO SCH (15:55)
[2023-04-05] MEDS: Atorvastatin Calcium 40 MG TAB PO SCH (20:41)
[2023-04-06 05:05] LABS: Anion Gap 11 mmol/L (10-20); BUN (Urea Nitrogen) 30 mg/dL (9.8-20.1); Calc. Creatinine Clearance 27 mL/min (70-130); Calcium 7.9 mg/dL (7.8-10.44); Carbon Dioxide 21 mmol/L (23-31); Chloride 107 mmol/L (98-107); Estimated GFR 21; Glucose 185 mg/dL (80-115); Potassium 4.7 mmol/L (3.5-5.1); Sodium 134 mmol/L (136-145)
[2023-04-06] MEDS: Sodium Chloride 0.9% 1,000 ML IV SCH ×2 (06:34→13:11)
[2023-04-06] MEDS: Heparin 5,000 UNITS/ML VIAL SC SCH ×3 (09:29→21:09)
[2023-04-06] MEDS: Amlodipine 5 MG TAB PO SCH ×2 (09:29→21:08)
[2023-04-06] MEDS: Metoprolol Tartrate 25 MG TAB PO SCH ×2 (09:29→21:09)
[2023-04-06] MEDS: Insulin Glargine 30 UNITS/0.3 ML VIAL SC SCH ×3 (09:30→21:21)
[2023-04-06] MEDS: HumaLOG 300 UNITS/3 ML VIAL SC PRN (13:11)
[2023-04-06] MEDS: Atorvastatin Calcium 40 MG TAB PO SCH (21:09)
[2023-04-07] MEDS: Sodium Chloride 0.9% 1,000 ML IV SCH ×3 (00:31→18:37)
[2023-04-07 05:17] LABS: Anion Gap 9 mmol/L (10-20); BUN (Urea Nitrogen) 33 mg/dL (9.8-20.1); Calc. Creatinine Clearance 29 mL/min (70-130); Calcium 8.1 mg/dL (7.8-10.44); Carbon Dioxide 20 mmol/L (23-31); Chloride 111 mmol/L (98-107); Estimated GFR 23; Glucose 163 mg/dL (80-115); Potassium 4.7 mmol/L (3.5-5.1); Sodium 135 mmol/L (136-145)
[2023-04-07] MEDS: Heparin 5,000 UNITS/ML VIAL SC SCH ×3 (10:04→20:26)
[2023-04-07] MEDS: Metoprolol Tartrate 25 MG TAB PO SCH ×2 (10:05→20:27)
[2023-04-07] MEDS: Amlodipine 5 MG TAB PO SCH ×2 (10:05→20:27)
[2023-04-07] MEDS: LevoFLOXacin 750 MG TAB PO SCH (13:33)
[2023-04-07] MEDS: Insulin Glargine 30 UNITS/0.3 ML VIAL SC SCH (20:26)
[2023-04-07] MEDS: Atorvastatin Calcium 40 MG TAB PO SCH (20:27)
[2023-04-08 05:35] LABS: Anion Gap 9 mmol/L (10-20); BUN (Urea Nitrogen) 34 mg/dL (9.8-20.1); Calc. Creatinine Clearance 30 mL/min (70-130); Carbon Dioxide 18 mmol/L (23-31); Chloride 113 mmol/L (98-107); Estimated GFR 21; Glucose 98 mg/dL (80-115); Potassium 4.4 mmol/L (3.5-5.1); Sodium 136 mmol/L (136-145)
[2023-04-08] MEDS: Sodium Chloride 0.9% 1,000 ML IV SCH (05:43)
[2023-04-08] MEDS: Heparin 5,000 UNITS/ML VIAL SC SCH (09:26)
[2023-04-08] MEDS: Amlodipine 5 MG TAB PO SCH (09:26)
[2023-04-08] MEDS: Metoprolol Tartrate 25 MG TAB PO SCH (09:26)
[2023-04-08 11:40] VITALS: BP 149/71; TEMP 97.6
== END 2023-04-08 12:38 | disposition home or self-care (01) | DRG 637 ==
LOC: ERS 13:02 → 2SW 16:19 → OBSVTOIN 03-30 09:30
PROVIDERS: ADMIT Internal Medicine; ATTEND Internal Medicine Critical Care Medicine
PROC: 3E03329 Introduction of Other Anti-infective into Peripheral Vein, Percutaneous Approach (ICD-10-PCS; 2023-04-02)
PROC: 30233J1 Transfusion of Nonautologous Serum Albumin into Peripheral Vein, Percutaneous Approach (ICD-10-PCS; principal; 2023-04-04)
DX: E11.628 Type 2 diabetes mellitus with other skin complications (principal); G93.41 Metabolic encephalopathy; L97.419 Non-pressure chronic ulcer of right heel and midfoot with unspecified severity; E87.1 Hypo-osmolality and hyponatremia; E11.621 Type 2 diabetes mellitus with foot ulcer; E87.6 Hypokalemia; I25.10 Atherosclerotic heart disease of native coronary artery without angina pectoris; N17.9 Acute kidney failure, unspecified; I12.9 Hypertensive chronic kidney disease with stage 1 through stage 4 chronic kidney disease, or unspecified chronic kidney disease; E78.5 Hyperlipidemia, unspecified; K21.00 Gastro-esophageal reflux disease with esophagitis, without bleeding; E11.65 Type 2 diabetes mellitus with hyperglycemia; E11.22 Type 2 diabetes mellitus with diabetic chronic kidney disease; E11.649 Type 2 diabetes mellitus with hypoglycemia without coma; D63.1 Anemia in chronic kidney disease; N18.4 Chronic kidney disease, stage 4 (severe); E55.9 Vitamin D deficiency, unspecified; L08.9 Local infection of the skin and subcutaneous tissue, unspecified; Z79.4 Long term (current) use of insulin; Z79.899 Other long term (current) drug therapy; Z95.1 Presence of aortocoronary bypass graft; Z90.49 Acquired absence of other specified parts of digestive tract
CPT/HCPCS: 36415; 36416; 72072; 72100; 76770; 80048; 80053; 80202; 81001; 82306; 82570; 82728; 83036; 83540; 83550; 83605; 83735; 83970; 84100; 84156; 85025; 87040; 87070; 87077; 87186; 87205; 96365; 96367; 96368; 96375; 96376; 97139; G0378; J0360; J0692; J1611; J1644; J1650; J1815; J2405; J3370-JW; J3475; J3480; J3490; J7050; P9047; Q5105